=== PATIENT | female | born 1960 | race Caucasian/White ===

== ENCOUNTER → 2019-07-08 09:42 | Outpatient (CLI) | payer MEDICARE, SELFPAY ==
--- NOTE | ~2019-07-08 | XR_ITS ---
XR cervical spine min 6V 07/08/2019 10:24 Indication: Neck pain Procedure: 7 views of the cervical spine including flexion/extension views Comparison: No prior studies for comparison. Findings: There is disc narrowing at C4-5 and C5-6. There is mild multilevel uncinate hypertrophy. Wilma ng apices are normal. No prevertebral soft tissue abnormality. No significant alteration of alignment with flexion/extension. Odontoid process within normal limits. Impression: 1: Mild cervical spondylosis. Reviewed, dictated and finalized at location A. ICAL SCRUB TECH Impression: 1: Mild cervical spondylosis.
== END ==
DX: M47.22 Other spondylosis with radiculopathy, cervical region (principal); M79.12 Myalgia of auxiliary muscles, head and neck; M54.2 Cervicalgia; M99.01 Segmental and somatic dysfunction of cervical region; M99.02 Segmental and somatic dysfunction of thoracic region
CPT/HCPCS: 72052

== ENCOUNTER → 2019-08-10 11:12 | Outpatient (CLI) | payer MEDICARE, SELFPAY ==
--- NOTE | ~2019-08-10 | MM_ITS ---
EXAMINATION: MM screening [facility] BI w mono HISTORY: Screening mammogram TECHNIQUE: Craniocaudal and mediolateral oblique 3-D tomosynthesis images were obtained and synthetic 2-D images were generated. CAD analysis was submitted and interpreted. COMPARISON: 06/04/2010 BREAST PARENCHYMAL COMPOSITION: There are scattered areas of fibroglandular density. FINDINGS: Stable mild fibroglandular asymmetry. There is no evidence of suspicious mass, calcificatio n, or architectural distortion to suggest malignancy in either breast. There has been no suspicious i nterval change. IMPRESSION: 1. No mammographic evidence of malignancy. 2. Recommend routine screening mammography in one year. BI-RADS Category 1: Negative Reviewed, dictated and finalized at location A.
== END ==
PROVIDERS: Visit Provider Nurse Practitioner Obstetrics & Gynecology
DX: Z12.31 Encounter for screening mammogram for malignant neoplasm of breast (principal)
CPT/HCPCS: 77063; 77067

== ENCOUNTER 2019-08-30 10:14 | Inpatient (IN) | payer MEDICARE, SELFPAY ==
[2019-08-30] VITALS (18 sets, daily range): BP systolic 148–175; BP diastolic 60–89; PULSE 97–118; RESP 10–18; TEMP 36.8–39.3; O2SAT 94–100
--- NOTE | ~2019-08-30 | US_ITS ---
EXAMINATION: US venous doppler [facility] EXAM DATE: 08/30/2019 15:35 INDICATION: Left leg edema. TECHNIQUE: Multiple grayscale, color flow and Doppler images of the left lower extremity deep venous system were obtained and reviewed. There is no prior study for comparison. FINDINGS: The left common femoral, femoral and profunda veins demonstrate normal color flow, respirat ory variation, augmentation and compressibility. Compressibility, color flow confirmed within the le ft popliteal, posterior tibial, peroneal, and greater saphenous veins. IMPRESSION: 1. No left lower extremity deep venous thrombosis. Reviewed, dictated and finalized at location A.
--- NOTE | ~2019-08-30 | XR_ITS ---
EXAMINATION: XR chest 1V portable 08/30/2019 11:04 INDICATION: Fever and leg swelling PROCEDURE: AP portable chest COMPARISON: 09/20/2018 FINDINGS: The lungs are clear. The cardiomediastinal silhouette is within normal limits. There are no pleural effusions. There is no pneumothorax suspected. There is heterotopic ossification of the left upper ribs. There is a healed right humeral fracture incompletely visualized. IMPRESSION: 1: NO ACUTE CARDIOPULMONARY DISEASE. Reviewed, dictated and finalized at location A.
--- NOTE | 2019-08-30 10:31 | ED.LOWEXIN ---
HPI - Extremity Injury (Lower) General Chief Complaint: Extremity Injury, Lower Stated Complaint: left leg swelling Time Seen by Provider: 08/30/19 10:17 History of Present Illness HPI Narrative: 59 yo female w/ h/o DM and recurrent LLE cellulitis brought in by private vehicle c/o LLE cellulitis. She first new something was wrong a few days ago when her blood sugar became very difficult to control. Then she noted a painful raised red rash developing around her left knee. The rash has since spread to involve the entire lower leg and part of the thigh. She has also had nausea and multiple episodes Additionally today she developed a fever. This is similar to previous episodes of cellulitis that she has had in the past. This all started after suffer trauma to the left leg requiring reconstructive surgery. Related Data Home Medications Medication Instructions Recorded Confirmed celecoxib 200 mg capsule 200 mg PO BID PRN 04/25/19 04/25/19 cetirizine 10 mg tablet 10 mg PO DAILY 04/25/19 04/25/19 diphenhydramine HCl 25 mg tablet 25 mg PO .QD tablet 04/25/19 04/25/19 Allergies Allergy/AdvReac Type Severity Reaction Status Date / Time chicken derived Allergy Unknown DIZZINESS, Verified 09/20/18 08:16 FACIAL FLUSHING clindamycin Allergy Unknown Rash Verified 08/30/19 10:22 Penicillins Allergy Unknown Anaphylactic Verified 08/30/19 10:22 Shock pepper (genus Capsicum) Allergy Unknown DIZZINESS, Verified 09/20/18 08:16 FACIAL FLUSHING Sulfa (Sulfonamide Allergy Unknown Unknown Verified 08/30/19 10:22 Antibiotics) Review of Systems Review of Systems: All systems reviewed & are unremarkable except as noted in HPI and below Constitutional: Constitutional: Denies fatigue, Reports fever(s) and Denies weakness Cardiovascular: Cardiovascular: Denies chest pain Respiratory: Respiratory: Denies dyspnea Gastrointestinal: Gastrointestinal: Denies abdominal pain, Denies constipation, Denies diarrhea, Reports nausea and Reports vomiting Genitourinary: Genitourinary: Denies dysuria Endocrine: Endocrine: Reports polyuria PMFSH Past Medical History Medical History (Updated 08/30/19 @ 13:12 by Andrew Leahy MD) Cellulitis Elevated BP without diagnosis of hypertension Type 2 diabetes mellitus Surgical History Surgical History History of appendectomy History of cholecystectomy History of hysterectomy S/P debridement Family History Family History Father CAD (coronary artery disease) Hypertension Diabetes mellitus Mother Lung cancer Diabetes mellitus Grandparent Diabetes mellitus Social History Social History Smoking status: Never smoker Alcohol intake: never Gender identity (if verbalized by the patient): Female Exam Const: General: no acute distress, alert and ill appearing acutely and chronically Nutritional Appearance: obese Orientation/consciousness: patient oriented x3 HENMT: Mouth: Yes dry mucous membranes Resp: Effort & Inspection: normal respiratory effort Auscultation: clear to auscultation bilaterally Cardio: Rate: tachycardic Rhythm: regular rhythm GI: Inspection: non-distended GI Palp: Yes Soft to palpation and No Tenderness to palpation present (GI) Skin: Other: extensive surgical scars to LLE. 2 cm scab to left Knee. diffuse erythema, induration, warmth of the LLE below the mid thigh. Neuro: General: patient oriented x3 and moves all extremities Speech: normal speech Extrem: Other: See Skin exam Psych: Appearance: grossly normal Mental Status: mental status grossly normal Affect: normal affect Thought content: Yes Normal thought content present Course Vital Signs Vital signs: Vital Signs Temperature 38.2 C H 08/30/19 10:18 Pulse Rate 115 H 08/30/19 10:18 Respiratory
[2019-08-30] MEDS: SODIUM CHLORIDE 0.9% IV 1,000 ML 999 ML IV CONT ×2 (10:40→12:00)
--- NOTE | 2019-08-30 10:42 | PC.NURSE ---
PT INFORMED OF NEED FOR URINE SPECIMEN, STATES THAT SHE CANNOT GIVE ONE NOW, BUT WILL ATTEMPT IN A BIT, REFUSING STRAIGHT CATH.
[2019-08-30 10:52] LABS: Basophils Percent Auto 0.3 % (0.2-1.2); Hematocrit 44.1 % (37.0-47.0); Hemoglobin 13.9 g/dL (12.0-15.0); Immature Granulocyte Absolute 0.05 K/mm3 (0.00-0.031); Immature Granulocyte Percent A 0.5 % (0-0.5); Lymphocytes Absolute Auto 0.18 K/mm3 (0.9-3.2); Lymphocytes Percent Auto 1.9 % (18.3-44.2); Mean Corpuscular HGB Conc 31.5 g/dl (32-36); Mean Corpuscular Hemoglobin 26.6 pg (26-34); Mean Corpuscular Volume 84.5 fl (80-100); Mean Platelet Volume 11.5 fl (7.4-10.4); Monocytes Absolute Auto 0.4 K/mm3 (0.1-0.6); Monocytes Percent Auto 4.1 % (2.6-8.5); Neutrophils Absolute Auto 8.7 K/mm3 (1.3-6.7); Neutrophils Percent Auto 93.2 % (45.5-73.1); Platelet Count Result 142 k/mm3 (150-375); Red Blood Count 5.22 M/mm3 (4.2-5.4); Red Cell Distribution Width 13.9 % (11.5-14.5); White Blood Count 9.4 K/mm3 (4.5-10.0)
[2019-08-30 11:04] LABS: INR 1.1; Prothrombin Time 13.6 Seconds (11.1-14.7)
[2019-08-30 11:05] LABS: Partial Thromboplastin Time 30.7 SECONDS (22.3-36.8)
--- NOTE | 2019-08-30 11:10 | PC.NURSE ---
Pt unable to give urine sample at this time, refusing straight cath.
[2019-08-30 11:11] LABS: Lactic Acid Reflex 1.5 mmol/L (0.7-2.1)
[2019-08-30 11:29] LABS: Alanine Aminotransferase 21 U/L (4-35); Albumin Level 4.5 g/dL (3.5-5.1); Alkaline Phosphatase 83 U/L (38-126); Aspartate Amino Transferase 22 U/L (14-36); Bilirubin,Total 1.1 mg/dL (0.2-1.3); Blood Urea Nitrogen 11 mg/dL (7-17); Carbon Dioxide 25 mmol/L (22-30); Chloride 100 mmol/L (98-107); Estimated CRCL calculation 66 ml/min; Estimated Glomerular Filt Rate > 60; Glucose 298 mg/dL (65-105); Sodium 132 mmol/L (137-145)
[2019-08-30 11:47] LABS: CRP 19.2 mg/dL (<1.0)
--- NOTE | 2019-08-30 11:50 | PC.NURSE ---
Pt unable to give urine sample, refusing straight cath.
[2019-08-30 12:12] LABS: Appearance Urine Clear (Clear); Bilirubin Urine Negative (Negative); Color Urine Yellow (Yellow); Glucose Urine UA 2+ mg/dL (Negative); Ketones Urine 3+ mg/dL (Negative); Leukocyte Esterase Ur Negative LEU/UL (Negative); Nitrate Urine Negative (Negative); Protein Urine Trace mg/dL (Negative); Specific Grav Ur 1.025 (1.001-1.035); Urobilinogen Urine 0.2 mg/dL (<2.0)
[2019-08-30 12:13] LABS: Add Urine Microscopic? YES; Blood Urine Trace-Intact (Negative)
[2019-08-30] MEDS: LACTATED RINGERS 1,000 ML 125 ML IV CONT (12:56)
--- NOTE | 2019-08-30 12:57 | ADMGEN ---
This patient, Saranya Tirado, was admitted to [facility] Room 300-01. Patient/family oriented to hospital policies and general routines including ID bracelet, bed and alarms, visiting hours, pain management, procedures, bathroom and other care routines, personal items, smoking policy, room service/diet, and visiting hours. Valuables list has been completed. Information on how to activate the Rapid Response Team has been discussed. Patient/Family are encouraged to report perceived risks to care and to ask questions if they do not understand what they are told or what they should do.
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
[2019-08-30] MEDS: ONDANSETRON INJ 4 MG/2 ML VIAL IV PUSH (17:16)
[2019-08-30] MEDS: INSULIN ASPART (*BKC) 100 UNITS/ML SUB-Q (17:16)
[2019-08-30] MEDS: ENOXAPARIN 40 MG/0.4 ML SYRINGE SUB-Q (17:18)
[2019-08-30] MEDS: glipiZIDE 5 MG TABLET PO (17:36)
[2019-08-30 18:49] LABS: Glucose Point of Care 232 (65-105)
[2019-08-30] MEDS: PANTOPRAZOLE 40 MG TABLET PO (20:34)
[2019-08-30] MEDS: CELECOXIB 200 MG CAPSULE PO (20:34)
[2019-08-30 21:14] LABS: Glucose Point of Care 196 (65-105)
[2019-08-31] VITALS (12 sets, daily range): BP systolic 129–150; BP diastolic 55–63; PULSE 84–97; RESP 18; TEMP 36.8–38.4; O2SAT 97–99
[2019-08-31] MEDS: LACTATED RINGERS 1,000 ML 125 ML IV CONT (03:01)
[2019-08-31 05:45] LABS: Basophils Percent Auto 0.4 % (0.2-1.2); Hematocrit 37.5 % (37.0-47.0); Hemoglobin 11.7 g/dL (12.0-15.0); Hemoglobin A1C 6.8 % (<5.7); Immature Granulocyte Absolute 0.03 K/mm3 (0.00-0.031); Immature Granulocyte Percent A 0.5 % (0-0.5); Immature Platelet Fraction Pct 4.7 % (0.9-11.2); Lymphocytes Absolute Auto 0.31 K/mm3 (0.9-3.2); Lymphocytes Percent Auto 5.6 % (18.3-44.2); Mean Corpuscular HGB Conc 31.2 g/dl (32-36); Mean Corpuscular Hemoglobin 26.8 pg (26-34); Mean Corpuscular Volume 85.8 fl (80-100); Mean Platelet Volume 11.3 fl (7.4-10.4); Monocytes Absolute Auto 0.2 K/mm3 (0.1-0.6); Monocytes Percent Auto 3.4 % (2.6-8.5); Neutrophils Percent Auto 90.1 % (45.5-73.1); Platelet Count Result 115 k/mm3 (150-375); Red Blood Count 4.37 M/mm3 (4.2-5.4); Red Cell Distribution Width 13.9 % (11.5-14.5); White Blood Count 5.5 K/mm3 (4.5-10.0)
[2019-08-31 05:49] LABS: Alanine Aminotransferase 17 U/L (4-35); Albumin Level 3.4 g/dL (3.5-5.1); Alkaline Phosphatase 63 U/L (38-126); Aspartate Amino Transferase 20 U/L (14-36); Bilirubin,Total 0.5 mg/dL (0.2-1.3); Blood Urea Nitrogen 10 mg/dL (7-17); Calcium 8.2 mg/dL (8.4-10.2); Carbon Dioxide 26 mmol/L (22-30); Chloride 106 mmol/L (98-107); Estimated CRCL calculation 67 ml/min; Estimated Glomerular Filt Rate > 60; Glucose 179 mg/dL (65-105); Magnesium 1.9 mg/dL (1.6-2.3); Sodium 135 mmol/L (137-145)
[2019-08-31 08:02] LABS: Glucose Point of Care 225 (65-105)
[2019-08-31] MEDS: INSULIN ASPART (*BKC) 100 UNITS/ML SUB-Q ×2 (08:08→12:10)
[2019-08-31] MEDS: CELECOXIB 200 MG CAPSULE PO (08:09)
[2019-08-31] MEDS: LORATADINE 10 MG TABLET PO (08:09)
[2019-08-31] MEDS: PANTOPRAZOLE 40 MG TABLET PO ×2 (08:09→20:49)
[2019-08-31] MEDS: glipiZIDE 5 MG TABLET PO ×2 (08:09→17:08)
[2019-08-31] MEDS: ENOXAPARIN 40 MG/0.4 ML SYRINGE SUB-Q (08:10)
[2019-08-31 10:53] LABS: Hepatitis B Surface Antigen Negative (Negative)
[2019-08-31 11:10] LABS: HIV 1/2 Ab P24 Ag Result Negative (Negative); Hepatitis C Virus Antibody Negative (Negative)
[2019-08-31 11:35] LABS: Glucose Point of Care 206 (65-105)
--- NOTE | 2019-08-31 13:16 | PM.IMPN ---
Progress Note: A&P Assessment and Plan (1) Sepsis: Qualifiers: Sepsis acute organ dysfunction status: without acute organ dysfunction Sepsis type: sepsis due to unspecified organism Qualified Code(s): A41.9 - Sepsis, unspecified organism Code(s): A41.9 - Sepsis, unspecified organism Status: Acute Assessment and Plan: -----on admission patient was tachycardic with a fever. Her heart rate is better. Source likely cellulitis. 1 bottle of her blood cultures is growing gram-positive cocci in clusters. White blood cell count normal but CRP is elevated. Will continue IV antibiotics until identification and sensitivity. (2) Cellulitis: Qualifiers: Site of cellulitis: extremity Site of cellulitis of extremity: lower extremity Laterality: left Qualified Code(s): L03.116 - Cellulitis of left lower limb Code(s): L03.90 - Cellulitis, unspecified Status: Acute Assessment and Plan: -----see above. Continue vancomycin and imipenem at this time. One blood culture positive so far. Patient has had multiple surgeries with skin graft to that left lower extremity in the past. (3) Hyperlipidemia: Qualifiers: Hyperlipidemia type: mixed hyperlipidemia Qualified Code(s): E78.2 - Mixed hyperlipidemia Code(s): E78.5 - Hyperlipidemia, unspecified Status: Acute Assessment and Plan: Chronic . (4) Type 2 diabetes mellitus: Qualifiers: Diabetes mellitus nursing home insulin use: without nursing home use Diabetes mellitus complication status: without complication Qualified Code(s): E11.9 - Type 2 diabetes mellitus without complications Code(s): E11.9 - Type 2 diabetes mellitus without complications Status: Acute Assessment and Plan: -----last glucose to a 6. Likely worsened with infection and vancomycin and dextrose. Continue SSI. A1c 6.8. (5) Bacteremia: Code(s): R78.81 - Bacteremia Status: Acute Assessment and Plan: -----1/2 blood cultures positive for Gram-positive cocci in clusters. Likely due from cellulitis but await sensitivities and identification. See treatment details above. Time Spent With Patient Time with patient: 25 - 35 minutes Subjective Date/time seen: 08/31/19 13:16 Interval history: Pt is a 59-year-old female here for cellulitis. Patient was seen today and states the redness in her leg is unchanged. With that being said, she feels much better. She no longer has chills and feels hot but does not feel as feverish as she has been. She feels overall much better. Her appetite has been lower but she is going to try to eat more today. She says her blood glucose has been more elevated than normal but I talked her about the vancomycin and the dextrose that is in there. She denies chest pain, shortness of breath, or abdominal pain. Review of Systems Review of Systems: All systems reviewed & are unremarkable except as noted in HPI and below Exam Narrative: Exam Narrative: General: Overweight patient resting comfortably in bed in no acute distress HEENT: normocephalic Neck: supple Neuro: Alert and oriented x4 CV:RRR. Telemetry shows sinus tachycardia earlier in the stay but normal sinus rhythm today 89. No murmurs auscultated Resp:CTA Abd: Soft, non distended. No pain to palpation. Positive bowel sounds Extremities: Left leg with erythema mostly on the lower part of the extremity up until inferior aspect of the knee. There is some involvement with the distal thigh as well. This was outlined and will continue watching it. Sensation and pulses intact bilaterally. Objective Data Vital Signs Vital Signs: Vital Signs - 24 hr 08/30/19 13:42 08/30/19 16:00 08/30/19 17:13 Temperature 98.3 F 102.0 F H Pulse Rate 109 H 118 H Respiratory Rate 18 Blood Pressure 152/60 H Pulse Oximetry 97 08/30/19 17:19 08/30/19 17:49 08/30/19 18:54 Tem
[2019-08-31] MEDS: ACETAMINOPHEN 325 MG TABLET 650 MG PO (17:08)
[2019-08-31 17:35] LABS: Glucose Point of Care 195 (65-105)
[2019-08-31 20:58] LABS: Glucose Point of Care 235 (65-105)
[2019-09-01 06:00] VITALS: BP 148/63; PULSE 107; RESP 20; TEMP 36.8; O2SAT 98
[2019-09-01] MEDS: glipiZIDE 5 MG TABLET PO ×2 (09:11→17:27)
[2019-09-01] MEDS: ENOXAPARIN 40 MG/0.4 ML SYRINGE SUB-Q (09:11)
[2019-09-01] MEDS: PANTOPRAZOLE 40 MG TABLET PO ×2 (09:11→21:07)
[2019-09-01] MEDS: INSULIN ASPART (*BKC) 100 UNITS/ML SUB-Q ×2 (09:14→17:28)
[2019-09-01 09:32] LABS: Hematocrit 39.1 % (37.0-47.0); Hemoglobin 12.3 g/dL (12.0-15.0); Mean Corpuscular HGB Conc 31.5 g/dl (32-36); Mean Corpuscular Hemoglobin 27.2 pg (26-34); Mean Corpuscular Volume 86.3 fl (80-100); Platelet Count Result 166 k/mm3 (150-375); Red Blood Count 4.53 M/mm3 (4.2-5.4); White Blood Count 6.5 K/mm3 (4.5-10.0)
[2019-09-01 09:58] LABS: Blood Urea Nitrogen 9 mg/dL (7-17); Calcium 8.3 mg/dL (8.4-10.2); Carbon Dioxide 22 mmol/L (22-30); Chloride 106 mmol/L (98-107); Estimated CRCL calculation 87 ml/min; Estimated Glomerular Filt Rate > 60; Glucose 227 mg/dL (65-105); Potassium 4.2 mmol/L (3.4-5.0); Sodium 133 mmol/L (137-145)
[2019-09-01 10:09] LABS: Vancomycin Trough 6.3 ug/mL (10.0-20.0)
[2019-09-01 10:17] LABS: Glucose Point of Care 215 (65-105)
--- NOTE | 2019-09-01 12:42 | PM.IMPN ---
Progress Note: A&P Assessment and Plan (1) Sepsis: Qualifiers: Sepsis acute organ dysfunction status: without acute organ dysfunction Sepsis type: sepsis due to unspecified organism Qualified Code(s): A41.9 - Sepsis, unspecified organism Code(s): A41.9 - Sepsis, unspecified organism Status: Acute Assessment and Plan: -----on admission patient was tachycardic with a fever. Her heart rate is better. Source likely cellulitis. 1 bottle of her blood cultures is growing coag-negative staph. White blood cell count normal but CRP is elevated. Patient initially on imipenem and vancomycin but she started having a rash and nausea with the imipenem. This has been stopped and the vancomycin will be infused slower. She is now on cefazolin and vancomycin--although the patient is diabetic, Pseudomonas infection seems less likely. Infectious disease consulted (2) Cellulitis: Qualifiers: Site of cellulitis: extremity Site of cellulitis of extremity: lower extremity Laterality: left Qualified Code(s): L03.116 - Cellulitis of left lower limb Code(s): L03.90 - Cellulitis, unspecified Status: Acute Assessment and Plan: -----see above. Continue treatment as stated above. Patient has had multiple surgeries with skin graft to that left lower extremity in the past. She has no metal or hardware in the leg but may have a couple screws. (3) Hyperlipidemia: Qualifiers: Hyperlipidemia type: mixed hyperlipidemia Qualified Code(s): E78.2 - Mixed hyperlipidemia Code(s): E78.5 - Hyperlipidemia, unspecified Status: Acute Assessment and Plan: Chronic . (4) Type 2 diabetes mellitus: Qualifiers: Diabetes mellitus prison insulin use: without reliability technician use Diabetes mellitus complication status: without complication Qualified Code(s): E11.9 - Type 2 diabetes mellitus without complications Code(s): E11.9 - Type 2 diabetes mellitus without complications Status: Acute Assessment and Plan: -----last glucose 215. A1c 6.8. Likely worsened with infection and vancomycin and dextrose. Continue SSI. (5) Bacteremia: Code(s): R78.81 - Bacteremia Status: Acute Assessment and Plan: -----1/2 blood cultures positive for coag-negative staph. Could be contamination but patient has been febrile with cellulitis. Continue cephazolin and vancomycin and I have asked Dr. drew to see the patient. I appreciate his further recommendations (6) Drug eruption: Code(s): L27.0 - Generalized skin eruption due to drugs and medicaments taken internally Status: Acute Assessment and Plan: -----patient started having a diffuse rash which she thinks is because of imipenem. She says she has an anaphylactic shock reaction to penicillins but does not remember this reaction as she was a young child and her mother has provided the information for her. She says that she has taken Keflex in the past without issue. Because of the low cross sensitivity reaction to cephalosporins and her history of cephalosporin use, cefazolin was started in place of imipenem. Subjective Date/time seen: 09/01/19 12:42 Interval history: Pt is a 59-year-old female here for cellulitis. Patient was seen today and states that she broke out in a red rash all over her body with the antibiotics. She thinks it is the imipenem. Every time they hang the antibiotic her skin gets more red and she gets nauseated. She has not noticed anything with the vancomycin. She says she has a penicillin allergy and does not remember it but her mom told her she had anaphylactic shock. The patient states that she takes Keflex and does not have a problem with that. She thinks her left leg looks more red but also states her entire body is red. Her fevers and chills have improved a low-grade fever overnight. We talked about her blood culture daniella
[2019-09-01 13:19] LABS: Glucose Point of Care 200 (65-105)
--- NOTE | 2019-09-01 15:11 | WPDINFPN2 ---
Progress Note: A&P Assessment and Plan (1) Cellulitis: Qualifiers: Site of cellulitis: extremity Site of cellulitis of extremity: lower extremity Laterality: left Qualified Code(s): L03.116 - Cellulitis of left lower limb Code(s): L03.90 - Cellulitis, unspecified Status: Acute Assessment and Plan: lle cellulitis REC Ancef # 1 (antibiotic #3) and f/u. The bacteremia is a contaminant Subjective Date/time seen: 09/01/19 15:11 Objective Data Vital Signs Vital Signs: Vital Signs - 24 hr 08/31/19 16:59 08/31/19 17:08 08/31/19 18:08 Temperature 37.7 C H 37.7 C H 37.7 C H Pulse Rate Respiratory Rate Blood Pressure Pulse Oximetry 08/31/19 22:00 09/01/19 06:00 Temperature 37.5 C 36.8 C Pulse Rate 97 107 H Respiratory Rate 18 20 Blood Pressure 148/63 H 148/63 H Pulse Oximetry 98 98 Intake/Output Intake/Output: Intake & Output 08/29/19 08/30/19 08/31/19 09/01/19 23:59 23:59 23:59 23:59 Intake Total 3500 3531 1190 Output Total 1000 2150 1400 Balance 2500 1381 -210 Meds/Results Medications: Active Medications Generic Name Dose Route Start Last Admin Trade Name Freq PRN Reason Stop Dose Admin Acetaminophen 650 mg 08/31/19 17:02 08/31/19 17:08 Tylenol Tablet PO 650 mg Q6H PRN Administration Mild Pain (1-3) or Fever Celecoxib 200 mg 08/30/19 13:55 08/31/19 08:09 Celebrex PO 200 mg BID PRN Administration Pain, Mild Diphenhydramine HCl 25 mg 08/31/19 09:00 09/01/19 09:11 Benadryl Cap PO 25 mg QAM LEO Administration Enoxaparin Sodium 40 mg 08/30/19 09:00 09/01/19 09:11 Lovenox SUB-Q 40 mg DAILY LEO Administration Glipizide 5 mg 08/30/19 17:00 09/01/19 09:11 Glucotrol PO 5 mg BIDWM LEO Administration Cefazolin Sodium 1 gm in 50 mls @ 100 mls/hr 09/01/19 12:40 Ancef 1 Gm/D5w 50 Ml Pm IVPB Q8HR [facility] Insulin Aspart 2 - 5 units 08/30/19 17:00 09/01/19 12:45 Novolog SUB-Q Not Given TIDWM [facility] Protocol Loratadine 10 mg 08/31/19 09:00 09/01/19 09:17 Claritin PO 09/30/19 09:01 Not Given DAILY [facility] Ondansetron HCl 4 mg 08/30/19 16:50 08/30/19 17:16 Zofran Inj IV PUSH 4 mg Q4H PRN Administration Nausea And Vomiting Pantoprazole Sodium 40 mg 08/30/19 21:00 09/01/19 09:11 Protonix PO 40 mg Q12HR LEO Administration Zinc Acetate/Diphenhydramine 1 applic 09/01/19 09:16 Benadryl 1% Cream TOPICAL QID PRN Itching Radiology Results: ITS Impressions Chest X-Ray 08/30/19 11:09 IMPRESSION: 1: NO ACUTE CARDIOPULMONARY DISEASE. Venous Doppler Study 08/30/19 15:35 IMPRESSION: 1. No left lower extremity deep venous thrombosis. Labs Labs: Laboratory Results - last 24 hr 08/31/19 08/31/19 09/01/19 17:12 20:47 08:53 WBC 6.5 RBC 4.53 Hgb 12.3 Hct 39.1 MCV 86.3 MCH 27.2 MCHC 31.5 L RDW 14.0 Plt Count 166 MPV 12.0 H Sodium Potassium Chloride Carbon Dioxide BUN Creatinine Estim Creat Clear Calc Estimated GFR Glucose POC Capillary Glucose 195 H 235 H Calcium Vancomycin Trough 09/01/19 09/01/19 09/01/19 08:53 08:53 09:04 WBC RBC Hgb Hct MCV MCH MCHC RDW Plt Count MPV Sodium 133 L Potassium 4.2 Chloride 106 Carbon Dioxide 22 BUN 9 Creatinine 0.60 L Estim Creat Clear Calc 87 Estimated GFR > 60 Glucose 227 H POC Capillary Glucose 215 H Calcium 8.3 L Vancomycin Trough 6.3 L 09/01/19 12:44 WBC RBC Hgb Hct MCV MCH MCHC RDW Plt Count MPV Sodium Potassium Chloride Carbon Dioxide BUN Creatinine Estim Creat Clear Calc Estimated GFR Glucose POC Capillary Glucose 200 H Calcium Vancomycin Trough
[2019-09-01 15:23] VITALS: BP 133/67; PULSE 91; RESP 16; TEMP 37.1; O2SAT 99
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
[2019-09-01 18:01] LABS: Glucose Point of Care 245 (65-105)
[2019-09-01] MEDS: DIPHENHYDRAMINE 1%/ZINC 0.1% CREAM 30 GM TUBE 1 APPLIC TOPICAL (19:11)
--- NOTE | 2019-09-01 20:02 | PC.NURSE ---
0815: Patient complains of diffuse itchy red rash. Patient assessed immediately. No SOB/chest or throat tightness. C/o some nausea. Offered patient Zofran but refused. Call placed to Vicenta Harvey PA-C and message left. Garrett seen patient. New orders recieved.
[2019-09-01 21:33] LABS: Glucose Point of Care 219 (65-105)
[2019-09-01 22:00] VITALS: BP 151/62; PULSE 92; RESP 16; TEMP 37.1; O2SAT 98
[2019-09-02 05:24] LABS: Hematocrit 38.5 % (37.0-47.0); Hemoglobin 12.1 g/dL (12.0-15.0); Mean Corpuscular HGB Conc 31.4 g/dl (32-36); Mean Corpuscular Hemoglobin 27.3 pg (26-34); Mean Corpuscular Volume 86.7 fl (80-100); Mean Platelet Volume 11.9 fl (7.4-10.4); Platelet Count Result 190 k/mm3 (150-375); Red Blood Count 4.44 M/mm3 (4.2-5.4); Red Cell Distribution Width 13.9 % (11.5-14.5); White Blood Count 4.1 K/mm3 (4.5-10.0)
[2019-09-02 06:00] VITALS: BP 109/63; PULSE 95; RESP 18; TEMP 36.8; O2SAT 100
[2019-09-02 08:04] LABS: Glucose Point of Care 211 (65-105)
[2019-09-02] MEDS: INSULIN ASPART (*BKC) 100 UNITS/ML SUB-Q ×2 (09:02→12:36)
[2019-09-02] MEDS: ENOXAPARIN 40 MG/0.4 ML SYRINGE SUB-Q (09:04)
[2019-09-02] MEDS: glipiZIDE 5 MG TABLET PO ×2 (09:05→17:54)
[2019-09-02] MEDS: CELECOXIB 200 MG CAPSULE PO (09:06)
[2019-09-02] MEDS: PANTOPRAZOLE 40 MG TABLET PO ×2 (09:06→21:16)
[2019-09-02 09:41] LABS: Blood Urea Nitrogen 14 mg/dL (7-17); CRP 19.1 mg/dL (<1.0); Calcium 8.2 mg/dL (8.4-10.2); Carbon Dioxide 27 mmol/L (22-30); Chloride 105 mmol/L (98-107); Estimated CRCL calculation 67 ml/min; Estimated Glomerular Filt Rate > 60; Glucose 235 mg/dL (65-105); Potassium 3.9 mmol/L (3.4-5.0); Sodium 137 mmol/L (137-145)
[2019-09-02 12:17] LABS: Glucose Point of Care 250 (65-105)
[2019-09-02 14:00] VITALS: BP 114/73; PULSE 101; RESP 18; TEMP 36.3; O2SAT 99
--- NOTE | 2019-09-02 14:10 | PM.IMPN ---
Progress Note: A&P Assessment and Plan (1) Sepsis: Qualifiers: Sepsis acute organ dysfunction status: without acute organ dysfunction Sepsis type: sepsis due to unspecified organism Qualified Code(s): A41.9 - Sepsis, unspecified organism Code(s): A41.9 - Sepsis, unspecified organism Status: Acute Assessment and Plan: -----on admission patient was tachycardic with a fever which has resolved. Source likely cellulitis. 1 bottle of her blood cultures is growing coag-negative staph which is believed to be a contamination. White blood cell count normal but CRP is elevated and unchanged. Patient initially on imipenem and vancomycin but she started having a rash and nausea with the imipenem. She is now on cefazolin. Pseudomonas infection seems less likely. Infectious disease consulted. She will be given 150mg of diflucan as she is having vaginal yeast symptoms. (2) Cellulitis: Qualifiers: Site of cellulitis: extremity Site of cellulitis of extremity: lower extremity Laterality: left Qualified Code(s): L03.116 - Cellulitis of left lower limb Code(s): L03.90 - Cellulitis, unspecified Status: Acute Assessment and Plan: -----see above. Continue treatment as stated above. Patient has had multiple surgeries with skin graft to that left lower extremity in the past. She has no metal or hardware in the leg but may have a couple screws. (3) Hyperlipidemia: Qualifiers: Hyperlipidemia type: mixed hyperlipidemia Qualified Code(s): E78.2 - Mixed hyperlipidemia Code(s): E78.5 - Hyperlipidemia, unspecified Status: Acute Assessment and Plan: Chronic . (4) Type 2 diabetes mellitus: Qualifiers: Diabetes mellitus correction insulin use: without intermodal truck driver use Diabetes mellitus complication status: without complication Qualified Code(s): E11.9 - Type 2 diabetes mellitus without complications Code(s): E11.9 - Type 2 diabetes mellitus without complications Status: Acute Assessment and Plan: -----last glucose 250. A1c 6.8. Likely worsened with infection. Continue SSI. (5) Bacteremia: Code(s): R78.81 - Bacteremia Status: Acute Assessment and Plan: -----1/2 blood cultures positive for coag-negative staph. Likely contamination (6) Drug eruption: Code(s): L27.0 - Generalized skin eruption due to drugs and medicaments taken internally Status: Acute Assessment and Plan: -----Unchanged today. Will do bendryl PRN. patient started having a diffuse rash 08/31 which she thinks was because of imipenem. She says she has an anaphylactic shock reaction to penicillins but does not remember this reaction as she was a young child and her mother has provided the information for her. She says that she has taken Keflex in the past without issue. She is tolerating the cefazolin at this time. Subjective Date/time seen: 09/02/19 14:10 Interval history: Pt is a 59-year-old female here for cellulitis. Patient was seen today and states she feels a lot better. She no longer has the fevers or the sweating. She still has the rash that started yesterday with antibiotics. She says the Benadryl helps her with the itching. She also thinks that she is getting a yeast infection which is common when she is on antibiotics. She denies chest pain, shortness of breath, fevers, abdominal pain, or diarrhea. Exam Narrative: Exam Narrative: General: Overweight patient resting comfortably in bed in no acute distress HEENT: normocephalic Neck: supple Neuro: Alert and oriented x4 CV:RRR. No murmurs auscultated Resp:CTA Abd: Soft, non distended. No pain to palpation. Positive bowel sounds skin: Blanchable macular erythematous rash noted on her trunk and extremities. Extremities: Left leg with erythema--not improved. No open wounds. Sensation and pulses intact. Objective Data Vital
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
[2019-09-02] MEDS: FLUCONAZOLE 150 MG TABLET PO (17:55)
[2019-09-02] MEDS: DIPHENHYDRAMINE 1%/ZINC 0.1% CREAM 30 GM TUBE 1 APPLIC TOPICAL (21:21)
[2019-09-02 21:30] LABS: Glucose Point of Care 172 (65-105)
[2019-09-02 22:00] VITALS: BP 144/63; PULSE 88; RESP 16; TEMP 37.1; O2SAT 97
[2019-09-03 01:21] LABS: Glucose Point of Care 237 (65-105)
[2019-09-03 06:19] VITALS: BP 130/70; PULSE 92; RESP 18; TEMP 37.1; O2SAT 98
[2019-09-03] MEDS: ENOXAPARIN 40 MG/0.4 ML SYRINGE SUB-Q (07:41)
[2019-09-03] MEDS: PANTOPRAZOLE 40 MG TABLET PO ×2 (07:42→21:12)
[2019-09-03] MEDS: glipiZIDE 5 MG TABLET PO ×2 (07:43→17:19)
[2019-09-03] MEDS: CELECOXIB 200 MG CAPSULE PO (07:44)
[2019-09-03 08:00] VITALS: PULSE 92; RESP 18; O2SAT 98
[2019-09-03 08:43] LABS: Glucose Point of Care 187 (65-105)
[2019-09-03 09:16] LABS: Hematocrit 40.1 % (37.0-47.0); Hemoglobin 12.4 g/dL (12.0-15.0); Mean Corpuscular HGB Conc 30.9 g/dl (32-36); Mean Corpuscular Hemoglobin 26.9 pg (26-34); Mean Platelet Volume 10.2 fl (7.4-10.4); Platelet Count Result 203 k/mm3 (150-375); Red Blood Count 4.61 M/mm3 (4.2-5.4); Red Cell Distribution Width 13.8 % (11.5-14.5); White Blood Count 4.1 K/mm3 (4.5-10.0)
[2019-09-03 09:49] LABS: Vancomycin Trough < 5.0 ug/mL (10.0-20.0)
--- NOTE | 2019-09-03 10:31 | PHAR ---
The patient's home med of CETIRIZINE 10 MG TABLET has been verified.
[2019-09-03 13:05] LABS: Glucose Point of Care 189 (65-105)
[2019-09-03 14:00] VITALS: BP 163/68; PULSE 89; RESP 18; TEMP 36.1; O2SAT 100
--- NOTE | 2019-09-03 15:06 | PM.IMPN ---
Progress Note: A&P Assessment and Plan (1) Sepsis: Qualifiers: Sepsis acute organ dysfunction status: without acute organ dysfunction Sepsis type: sepsis due to unspecified organism Qualified Code(s): A41.9 - Sepsis, unspecified organism Code(s): A41.9 - Sepsis, unspecified organism Status: Acute Assessment and Plan: -----on admission patient was tachycardic with a fever which has resolved. Source likely cellulitis. 1 bottle of her blood cultures is growing coag-negative staph which is believed to be a contamination. White blood cell count improved but CRP is elevated and unchanged. Patient initially on imipenem and vancomycin but she started having a rash and nausea with the imipenem. She is now on cefazolin and the cellulitis is better. Pseudomonas infection seems less likely. Infectious disease consulted. She was given 150mg of diflucan 09/01 as she was having vaginal yeast symptoms. (2) Cellulitis: Qualifiers: Site of cellulitis: extremity Site of cellulitis of extremity: lower extremity Laterality: left Qualified Code(s): L03.116 - Cellulitis of left lower limb Code(s): L03.90 - Cellulitis, unspecified Status: Acute Assessment and Plan: -----see above. Continue treatment as stated above. Patient has had multiple surgeries with skin graft to that left lower extremity in the past. She has no metal or hardware in the leg but may have a couple screws. (3) Hyperlipidemia: Qualifiers: Hyperlipidemia type: mixed hyperlipidemia Qualified Code(s): E78.2 - Mixed hyperlipidemia Code(s): E78.5 - Hyperlipidemia, unspecified Status: Acute Assessment and Plan: Chronic . (4) Type 2 diabetes mellitus: Qualifiers: Diabetes mellitus retirement insulin use: without retirement use Diabetes mellitus complication status: without complication Qualified Code(s): E11.9 - Type 2 diabetes mellitus without complications Code(s): E11.9 - Type 2 diabetes mellitus without complications Status: Acute Assessment and Plan: -----last glucose 189. A1c 6.8. Likely worsened with infection. Continue SSI. (5) Bacteremia: Code(s): R78.81 - Bacteremia Status: Acute Assessment and Plan: -----1/2 blood cultures positive for coag-negative staph. Likely contamination (6) Drug eruption: Code(s): L27.0 - Generalized skin eruption due to drugs and medicaments taken internally Status: Acute Assessment and Plan: -----Unchanged today. Will do bendryl PRN. patient started having a diffuse rash 08/31 which she thinks was because of imipenem. She says she has an anaphylactic shock reaction to penicillins but does not remember this reaction as she was a young child and her mother has provided the information for her. She says that she has taken Keflex in the past without issue. She is tolerating the cefazolin at this time. Subjective Date/time seen: 09/03/19 15:06 Interval history: Pt is a 59-year-old female here for cellulitis. Patient was seen today and states that her rash from the antibiotic has not improved but her cellulitis has. She says her rash itches at times but overall is not bothering her. She has no other complaints today. Pt denies nausea, vomiting, fevers, chills, constipation, diarrhea, chest pain, sob, or abdominal pain. Exam Narrative: Exam Narrative: General: Overweight patient resting comfortably in bed in no acute distress HEENT: normocephalic Neck: supple Neuro: Alert and oriented x4 CV:RRR. No murmurs auscultated Resp: Decreased breath sounds at the bases. All other areas clear. Abd: Soft, non distended. No pain to palpation. Positive bowel sounds skin: Blanchable maculopapular erythematous rash noted on her trunk and extremities. Extremities: Left leg with erythema--much improved. Most of the erythema is now on the posterior asp
[2019-09-03] MEDS: INSULIN ASPART (*BKC) 100 UNITS/ML SUB-Q (17:20)
[2019-09-03 17:53] LABS: Glucose Point of Care 203 (65-105)
[2019-09-03] MEDS: DIPHENHYDRAMINE 1%/ZINC 0.1% CREAM 30 GM TUBE 1 APPLIC TOPICAL (21:26)
[2019-09-03 22:00] VITALS: BP 148/71; PULSE 77; RESP 18; TEMP 36.4; O2SAT 99
[2019-09-03 22:59] LABS: Glucose Point of Care 248 (65-105)
[2019-09-04 06:00] VITALS: BP 130/47; PULSE 76; RESP 16; TEMP 36.2; O2SAT 98
[2019-09-04 08:00] VITALS: PULSE 83; RESP 16; O2SAT 99
[2019-09-04] MEDS: glipiZIDE 5 MG TABLET PO (08:30)
[2019-09-04] MEDS: ENOXAPARIN 40 MG/0.4 ML SYRINGE SUB-Q (08:34)
[2019-09-04] MEDS: PANTOPRAZOLE 40 MG TABLET PO (08:35)
[2019-09-04] MEDS: CELECOXIB 200 MG CAPSULE PO (08:35)
[2019-09-04 08:39] LABS: Glucose Point of Care 202 (65-105)
[2019-09-04] MEDS: INSULIN ASPART (*BKC) 100 UNITS/ML SUB-Q ×2 (08:39→12:37)
[2019-09-04 13:08] LABS: Glucose Point of Care 206 (65-105)
[2019-09-04 13:13] VITALS: BP 132/70; PULSE 83; RESP 16; TEMP 36.7; O2SAT 99
--- NOTE | 2019-09-04 13:30 | PM.DS ---
DS: Diagnosis Admitting Diagnosis Admitting Diagnosis: Sepsis, unspecified organism Discharge Diagnosis (1) Sepsis: Qualifiers: Sepsis acute organ dysfunction status: without acute organ dysfunction Sepsis type: sepsis due to unspecified organism Qualified Code(s): A41.9 - Sepsis, unspecified organism Code(s): A41.9 - Sepsis, unspecified organism Status: Acute (2) Cellulitis: Qualifiers: Site of cellulitis: extremity Site of cellulitis of extremity: lower extremity Laterality: left Qualified Code(s): L03.116 - Cellulitis of left lower limb Code(s): L03.90 - Cellulitis, unspecified Status: Acute (3) Hyperlipidemia: Qualifiers: Hyperlipidemia type: mixed hyperlipidemia Qualified Code(s): E78.2 - Mixed hyperlipidemia Code(s): E78.5 - Hyperlipidemia, unspecified Status: Acute (4) Type 2 diabetes mellitus: Qualifiers: Diabetes mellitus buttermaker insulin use: without penitentiary use Diabetes mellitus complication status: without complication Qualified Code(s): E11.9 - Type 2 diabetes mellitus without complications Code(s): E11.9 - Type 2 diabetes mellitus without complications Status: Acute (5) Bacteremia: Code(s): R78.81 - Bacteremia Status: Acute Assessment and Plan: -----1/2 blood cultures positive for coag-negative staph. Likely contamination (6) Drug eruption: Code(s): L27.0 - Generalized skin eruption due to drugs and medicaments taken internally Status: Acute DS: Summary Hospital Course Reason for hospitalization: Cellulitis Hospital Course: Patient is 59-year-old female who presented emergency room with left leg cellulitis. Patient has a history of cellulitis as she has had surgeries on her left leg with lots of scar tissue. The patient also had associated weakness and chills with this. She was admitted to the hospitalist service and started on IV antibiotics. She was 1st on vancomycin and imipenem which caused her to have a drug eruption rash on her trunk and extremities. This was stopped and switched to Ancef. Her cellulitis improved with this treatment. She had 1 of her blood cultures become positive but it was coag-negative staph and was thought to be due to contamination. The patient had improvement with her systemic symptoms with antibiotic therapy. Infectious Disease was consulted during this time and agreed with current treatment. Overall, the patient improved. She has many food and drug allergies and it was recommended that she see an metal burrer. Patient was educated on the worrisome signs symptoms come back to emergency room for was discharged in stable condition Status at Discharge Functional status at discharge: independent ambulation Overall status at discharge: patient is back to baseline Time Spent with Patient Time attestation: Total time spent providing and/or coordinating discharge services:34 min Time spent: Greater than 30 minutes Exam Narrative: Exam Narrative: General: Overweight patient resting comfortably in bed in no acute distress HEENT: normocephalic Neck: supple Neuro: Alert and oriented x4 CV:RRR. No murmurs auscultated Resp: Decreased breath sounds at the bases. All other areas clear. Abd: Soft, non distended. No pain to palpation. Positive bowel sounds skin: Blanchable maculopapular erythematous rash noted on her trunk and extremities. Extremities: Left leg with erythema--much improved. No open wounds. Sensation and pulses intact. DS: Data Data Completed and Pending Labs on day of discharge: Labs from last 24 hours 09/04/19 09/04/19 09/03/19 12:34 08:24 21:28 POC Capillary Glucose 206 H 202 H 248 H 09/03/19 17:18 POC Capillary Glucose 203 H Preliminary micro results at discharge 08/30/19 10:44 Blood Culture - Preliminary Blood Coag negative Staphylococcus 08/30/19 10:44 Blood Culture - Preli
== END 2019-09-04 15:00 | disposition home or self-care (01) | DRG 603 ==
LOC: ANHED 12:06 → ANH3MEDSUR 12:34
PROVIDERS: Nurse Practitioner; Physician Assistant; Admitting Provider Family Medicine; Emergency Provider Emergency Medicine; PCP Internal Medicine; Visit Provider Internal Medicine
DX: L03.116 Cellulitis of left lower limb (principal); B95.61 Methicillin susceptible Staphylococcus aureus infection as the cause of diseases classified elsewhere; R03.0 Elevated blood-pressure reading, without diagnosis of hypertension; E11.9 Type 2 diabetes mellitus without complications; E66.9 Obesity, unspecified; Z68.34 Body mass index [BMI] 34.0-34.9, adult; L27.1 Localized skin eruption due to drugs and medicaments taken internally; T36.0X5A Adverse effect of penicillins, initial encounter; Z90.49 Acquired absence of other specified parts of digestive tract; Z90.710 Acquired absence of both cervix and uterus; Z98.84 Bariatric surgery status
CPT/HCPCS: 36415; 71045; 80048; 80053; 80202; 81001; 83036; 83605; 83735; 84443; 85025; 85027; 85055; 85610; 85730; 86140; 86703; 86803; 87040; 87077; 87186; 87340; 93971; 96365; 96367; 99285; A9270; G0432; J0131; J0690; J0743; J1650; J1815; J2405; J3370; J7030; J7060; J7120

== ENCOUNTER 2019-12-05 15:07 | Inpatient (IN) | payer MEDICARE, SELFPAY ==
[2019-12-05 15:41] VITALS: BP 133/65; PULSE 118; RESP 20; TEMP 37.1; O2SAT 100
[2019-12-05 15:57] LABS: Basophils Percent Auto 0.4 % (0.2-1.2); Hemoglobin 13.9 g/dL (12.0-15.0); Immature Granulocyte Absolute 0.02 K/mm3 (0.00-0.031); Immature Granulocyte Percent A 0.3 % (0-0.5); Immature Platelet Fraction Pct 5.2 % (0.9-11.2); Lymphocytes Absolute Auto 0.21 K/mm3 (0.9-3.2); Lymphocytes Percent Auto 2.9 % (18.3-44.2); Mean Corpuscular HGB Conc 32.3 g/dl (32-36); Mean Corpuscular Hemoglobin 27.3 pg (26-34); Mean Corpuscular Volume 84.5 fl (80-100); Mean Platelet Volume 11.7 fl (7.4-10.4); Monocytes Absolute Auto 0.4 K/mm3 (0.1-0.6); Monocytes Percent Auto 5.2 % (2.6-8.5); Neutrophils Absolute Auto 6.7 K/mm3 (1.3-6.7); Neutrophils Percent Auto 91.2 % (45.5-73.1); Platelet Count Result 129 k/mm3 (150-375); Red Blood Count 5.09 M/mm3 (4.2-5.4); Red Cell Distribution Width 14.1 % (11.5-14.5); White Blood Count 7.4 K/mm3 (4.5-10.0)
[2019-12-05 16:08] LABS: Blood Urea Nitrogen 20 mg/dL (7-17); Calcium 8.8 mg/dL (8.4-10.2); Carbon Dioxide 26 mmol/L (22-30); Chloride 100 mmol/L (98-107); Estimated CRCL calculation 66 ml/min; Estimated Glomerular Filt Rate > 60; Glucose 201 mg/dL (65-105); Potassium 4.2 mmol/L (3.4-5.0); Sodium 134 mmol/L (137-145)
[2019-12-05 18:23] VITALS: BP 163/83; PULSE 115; RESP 20; O2SAT 98
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
[2019-12-05] MEDS: SODIUM CHLORIDE 0.9% IV 1,000 ML 999 ML IV CONT (19:33)
[2019-12-05] MEDS: METOCLOPRAMIDE HCL INJ 10 MG/2 ML VIAL IV PUSH (19:35)
[2019-12-05 20:19] LABS: Lactic Acid 2.3 mmol/L (0.7-2.1)
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
[2019-12-05 21:53] VITALS: BP 171/72; PULSE 117; RESP 19; O2SAT 99
[2019-12-05 22:04] VITALS: PULSE 115; RESP 19; TEMP 38.8; O2SAT 95
--- NOTE | 2019-12-05 22:17 | PC.NURSE ---
report given to floor RN at this time, all questions/concerns addressed.
--- NOTE | 2019-12-05 22:44 | PC.NURSE ---
This patient, Saranya Tirado, was admitted to 2 Medical Room 255-. Patient/family oriented to hospital policies and general routines including ID bracelet, bed and alarms, visiting hours, pain management, procedures, bathroom and other care routines, personal items, smoking policy, room service/diet, and visiting hours. Valuables list has been completed. Information on how to activate the Rapid Response Team has been discussed. Patient/Family are encouraged to report perceived risks to care and to ask questions if they do not understand what they are told or what they should do.
[2019-12-05 23:04] VITALS: BP 152/88; PULSE 110; RESP 12; TEMP 37.2; O2SAT 98
[2019-12-05 23:06] VITALS: BMI 34.9
[2019-12-05 23:27] LABS: Glucose Point of Care 293 (65-105)
[2019-12-06] VITALS (13 sets, daily range): BP systolic 125–154; BP diastolic 54–65; PULSE 109–128; RESP 16–20; TEMP 38.3–39.6; O2SAT 95–98
[2019-12-06 04:09] LABS: Basophils Percent Auto 0.4 % (0.2-1.2); Hematocrit 40.1 % (37.0-47.0); Hemoglobin 12.9 g/dL (12.0-15.0); Immature Granulocyte Absolute 0.02 K/mm3 (0.00-0.031); Immature Granulocyte Percent A 0.3 % (0-0.5); Immature Platelet Fraction Pct 4.1 % (0.9-11.2); Lymphocytes Absolute Auto 0.18 K/mm3 (0.9-3.2); Lymphocytes Percent Auto 2.4 % (18.3-44.2); Mean Corpuscular HGB Conc 32.2 g/dl (32-36); Mean Corpuscular Volume 84.1 fl (80-100); Mean Platelet Volume 11.2 fl (7.4-10.4); Monocytes Absolute Auto 0.2 K/mm3 (0.1-0.6); Monocytes Percent Auto 2.8 % (2.6-8.5); Neutrophils Absolute Auto 6.9 K/mm3 (1.3-6.7); Neutrophils Percent Auto 94.1 % (45.5-73.1); Platelet Count Result 138 k/mm3 (150-375); Red Blood Count 4.77 M/mm3 (4.2-5.4); Red Cell Distribution Width 14.6 % (11.5-14.5); White Blood Count 7.4 K/mm3 (4.5-10.0)
[2019-12-06 04:18] LABS: Lactic Acid Reflex 1.2 mmol/L (0.7-2.1)
[2019-12-06 05:23] LABS: Blood Urea Nitrogen 14 mg/dL (7-17); Calcium 8.5 mg/dL (8.4-10.2); Carbon Dioxide 23 mmol/L (22-30); Chloride 103 mmol/L (98-107); Estimated CRCL calculation 67 ml/min; Estimated Glomerular Filt Rate > 60; Glucose 247 mg/dL (65-105); Potassium 4.2 mmol/L (3.4-5.0); Sodium 133 mmol/L (137-145)
[2019-12-06] MEDS: ACETAMINOPHEN 325 MG TABLET 650 MG PO ×3 (06:12→21:32)
[2019-12-06] MEDS: ONDANSETRON INJ 4 MG/2 ML VIAL IV PUSH (06:15)
[2019-12-06] MEDS: glipiZIDE 5 MG TABLET PO ×2 (06:52→18:31)
[2019-12-06 07:23] LABS: Glucose Point of Care 223 (65-105)
[2019-12-06] MEDS: INSULIN ASPART (*BKC) 100 UNITS/ML SUB-Q (07:50)
[2019-12-06] MEDS: MULTIVITAMINS THERAPEUTIC TAB (*BKC) 1 TABLET PO (07:51)
[2019-12-06] MEDS: LORATADINE 10 MG TABLET PO (07:52)
[2019-12-06] MEDS: metFORMIN HCL 500 MG TABLET 1000 MG PO ×2 (07:52→18:31)
[2019-12-06] MEDS: ENOXAPARIN 40 MG/0.4 ML SYRINGE SUB-Q (07:52)
--- NOTE | 2019-12-06 10:19 | PM.IMPN ---
Progress Note: A&P Assessment and Plan (1) Sepsis: Qualifiers: Sepsis acute organ dysfunction status: without acute organ dysfunction Sepsis type: sepsis due to unspecified organism Qualified Code(s): A41.9 - Sepsis, unspecified organism Code(s): A41.9 - Sepsis, unspecified organism Status: Acute Assessment and Plan: Evident by tachycardia and fever, secondary to cellulitis. Lactic acid is improved, 1.2. Blood pressures have been stable. Continue IV antibiotics Begin gentle IV fluids Monitor vital signs closely and urine output. Blood cultures are pending and will await results (2) Cellulitis: Qualifiers: Site of cellulitis: extremity Site of cellulitis of extremity: lower extremity Laterality: left Qualified Code(s): L03.116 - Cellulitis of left lower limb Code(s): L03.90 - Cellulitis, unspecified Status: Acute Assessment and Plan: She has a history of LLE cellulitis with recent hospitalization in August 2019. She has chronic LLE edema secondary to surgical debridement/skin graft and has extensive scar tissue on the left leg. On exam, the leg is erythematous and warm to palpation. CRP is 3.0. Continue IV Vancomycin. It is noted that patient had a drug eruption during her last hospital stay when she was on Vancomycin with Imipenem. As of now, there is no evidence for adverse reaction with Vancomycin as a single agent but will monitor closely. Begin gentle IV fluids I have outlined the area to monitor for progression beyond borders. (3) Type 2 diabetes mellitus: Qualifiers: Diabetes mellitus retirement insulin use: without retirement use Diabetes mellitus complication status: without complication Qualified Code(s): E11.9 - Type 2 diabetes mellitus without complications Code(s): E11.9 - Type 2 diabetes mellitus without complications Status: Chronic Assessment and Plan: A1c in August 2019 was 6.8. Blood sugars have been within the 200-250 range. Continue accuchecks, SSI Coverage, hypoglycemic protocol. Continue metformin and glipizide. Continue to monitor blood sugar closely Subjective Date/time seen: 12/06/19 10:19 Interval history: Date of service: 12/06/2019 She is feeling okay today. She thinks her leg may be getting a little better and less painful today but states it is still very warm and red. She describes the pain as a hammer hitting her leg. Her leg is chronically swollen secondary to a surgical procedure and she does not feel that it is more swollen today. She endorsed fever and chills this morning but does not feel feverish now. She felt a little nauseous this morning which improved with zofran. She has not vomited. She is tolerating oral intake, drinking water, and her appetite has been good. She denies dizziness, lightheadedness, headache, confusion, shortness of breath, cough, chest pain, abdominal pain, or diarrhea. She requested her celebrex several times. Review of Systems Review of Systems: Narrative: A 12 point review of systems was reviewed with pertinent positives and negatives as per HPI. Exam Narrative: Exam Narrative: Ms. Tirado is examined alone today. She is a well nourished 59 year old female who is lying supine in bed. She appears comfortable in bed and is in NARD. HR 96, BP 154/65, RR 16, T 103.1, 97% on room air Neuro: awake, alert and oriented x4, speech clear, no focal neuro deficits noted HEENMT: normocephalic, atraumatic, EOMI, sclerae anicteric, moist oral mucosa, tongue midline Neck: supple, no lymphadenopathy Respiratory: clear to auscultation bilaterally, nonlabored breathing Cardio: regular rate, regular rhythm with S1-S2 Abdomen: slightly protuberant, surgical scar about umbilicus, normoactive bowel sounds, soft, nontender to palpation, no rigidity or guarding Extremities: LLE with muscle atrophy, skin changes, and chronic edema secondary to surgical procedure. Left valdez
[2019-12-06] MEDS: SODIUM CHLORIDE 0.9% IV 1,000 ML 75 ML IV CONT (12:21)
[2019-12-06 12:39] LABS: Glucose Point of Care 144 (65-105)
--- NOTE | 2019-12-06 13:53 | PCCCNOTE ---
On 12/06/19, the student, Juanita Elder, provided care and completed [facility] documentation on this patient. I have reviewed the student's documentation and agree with the findings.
[2019-12-06 17:00] LABS: Glucose Point of Care 174 (65-105)
[2019-12-06] MEDS: diphenhydrAMINE HCl CAP 25 MG CAPSULE PO (20:42)
[2019-12-06] MEDS: IMIPENEM/CILASTATIN SODIUM 250 MG in DEXTROSE 5% 100 ML 300 ML IVPB (23:00)
[2019-12-07 00:03] LABS: Glucose Point of Care 163 (65-105)
[2019-12-07] MEDS: SODIUM CHLORIDE 0.9% IV 1,000 ML 75 ML IV CONT ×2 (02:41→17:27)
[2019-12-07] MEDS: ONDANSETRON INJ 4 MG/2 ML VIAL IV PUSH ×3 (02:45→21:45)
[2019-12-07 05:14] LABS: Hematocrit 37.4 % (37.0-47.0); Hemoglobin 11.8 g/dL (12.0-15.0); Mean Corpuscular HGB Conc 31.6 g/dl (32-36); Mean Corpuscular Hemoglobin 27.2 pg (26-34); Mean Corpuscular Volume 86.2 fl (80-100); Platelet Count Result 125 k/mm3 (150-375); Red Blood Count 4.34 M/mm3 (4.2-5.4); Red Cell Distribution Width 14.6 % (11.5-14.5); White Blood Count 5.7 K/mm3 (4.5-10.0)
[2019-12-07 05:40] LABS: Blood Urea Nitrogen 13 mg/dL (7-17); Calcium 8.2 mg/dL (8.4-10.2); Carbon Dioxide 22 mmol/L (22-30); Chloride 106 mmol/L (98-107); Estimated CRCL calculation 60 ml/min; Estimated Glomerular Filt Rate > 60; Glucose 130 mg/dL (65-105); Sodium 134 mmol/L (137-145)
[2019-12-07 06:00] VITALS: BP 124/48; PULSE 103; RESP 18; TEMP 39.1; O2SAT 100
[2019-12-07] MEDS: IMIPENEM/CILASTATIN SODIUM 250 MG in DEXTROSE 5% 100 ML 300 ML IVPB (06:15)
[2019-12-07 06:19] LABS: CRP 42.3 mg/dL (<1.0)
[2019-12-07] MEDS: glipiZIDE 5 MG TABLET PO ×2 (06:24→17:28)
[2019-12-07 06:38] VITALS: TEMP 39.1
[2019-12-07] MEDS: ACETAMINOPHEN 325 MG TABLET 650 MG PO (06:38)
[2019-12-07 08:00] VITALS: PULSE 103; RESP 18; O2SAT 100
[2019-12-07] MEDS: metFORMIN HCL 500 MG TABLET 1000 MG PO ×2 (08:55→17:28)
[2019-12-07] MEDS: ENOXAPARIN 40 MG/0.4 ML SYRINGE SUB-Q (08:55)
[2019-12-07] MEDS: LORATADINE 10 MG TABLET PO (08:56)
[2019-12-07] MEDS: MULTIVITAMINS THERAPEUTIC TAB (*BKC) 1 TABLET PO (08:57)
[2019-12-07 09:11] LABS: Glucose Point of Care 185 (65-105)
--- NOTE | 2019-12-07 09:43 | PM.IMPN ---
Progress Note: A&P Assessment and Plan (1) Sepsis: Qualifiers: Sepsis acute organ dysfunction status: without acute organ dysfunction Sepsis type: sepsis due to unspecified organism Qualified Code(s): A41.9 - Sepsis, unspecified organism Code(s): A41.9 - Sepsis, unspecified organism Status: Acute Assessment and Plan: Evident by tachycardia and fever, secondary to cellulitis. Lactic acid is improved,. Blood pressures have been stable. Her fever has been persistent. Continue IV antibiotics Continue gentle IV fluids Monitor vital signs closely and urine output. preliminary blood cultures with NGTD. Await final cultures (2) Cellulitis: Qualifiers: Site of cellulitis: extremity Site of cellulitis of extremity: lower extremity Laterality: left Qualified Code(s): L03.116 - Cellulitis of left lower limb Code(s): L03.90 - Cellulitis, unspecified Status: Acute Assessment and Plan: She has a history of LLE cellulitis with recent hospitalization in August 2019. She has chronic LLE edema secondary to surgical debridement/skin graft and has extensive scar tissue on the left leg with poor skin integrity. CRP is 42.3. Continue IV Vancomycin. She had no adverse drug reaction when vancomycin was used as a single agent. Will add IV Ancef. Patient tolerated this well during her last hospitalization. Given her multiple drug allergies, will monitor closely Continue gentle IV fluids and supportive care with Tylenol as needed for fever Area has been outlined and erythema is confined to orders. (3) Type 2 diabetes mellitus: Qualifiers: Diabetes mellitus bed bug exterminator insulin use: without bed bug exterminator use Diabetes mellitus complication status: without complication Qualified Code(s): E11.9 - Type 2 diabetes mellitus without complications Code(s): E11.9 - Type 2 diabetes mellitus without complications Status: Chronic Assessment and Plan: A1c in August 2019 was 6.8. Blood sugars have been within the 140-180 range today. Continue accuchecks, SSI Coverage, hypoglycemic protocol. Continue metformin and glipizide. Continue to monitor blood sugar closely (4) Drug eruption: Code(s): L27.0 - Generalized skin eruption due to drugs and medicaments taken internally Status: Acute Assessment and Plan: During previous hospitalization, she was noted to have a drug eruption while on vancomycin and imipenem. She believes that this was due to imipenem as she has been told by her mother that she had anaphylactic shock reaction to penicillins as a very young child. She was started on imipenem last night and received 2 doses despite her documented allergy. This morning, she was noted to have a fine maculopapular rash of the upper extremities and back with associated pruritus Imipenem has been discontinued Continue Benadryl as needed given her multiple medication allergies, patient was advised to see an global security architect and she will benefit from follow-up as an outpatient. Subjective Date/time seen: 12/07/19 09:43 Interval history: Date of service: 12/07/2019 She is feeling better today. She felt feverish this morning, but feels is improved now. She thinks that her leg is less red and far less tender. She is able to walk on it with no difficulty. She is able to ambulate and denies any dizziness or lightheadedness, but notes that she feels weak after getting up, going to the bathroom, and lying back down. She feels itchy and notes that she has a fine rash on her upper arms. She also complains of GERD symptoms and requests an antacid. Her appetite has been fair. She denies nausea, vomiting, diarrhea, or abdominal pain. She had 2 soft formed bowel movements yesterday. She is drinking plenty of water. She has no additional concerns at this time. Review of Systems Review of Systems: Narrative: A 12 point review of systems was revie
[2019-12-07] MEDS: diphenhydrAMINE HCl CAP 25 MG CAPSULE PO (10:20)
[2019-12-07 11:44] LABS: Glucose Point of Care 219 (65-105)
[2019-12-07] MEDS: FAMOTIDINE 20 MG TABLET PO (11:48)
[2019-12-07] MEDS: INSULIN ASPART (*BKC) 100 UNITS/ML SUB-Q (11:53)
[2019-12-07 14:00] VITALS: BP 149/68; PULSE 106; RESP 12; TEMP 36.4; O2SAT 100
[2019-12-07 16:44] LABS: Glucose Point of Care 195 (65-105)
[2019-12-07 22:00] VITALS: BP 142/58; PULSE 104; RESP 22; TEMP 37.7; O2SAT 96
[2019-12-07 23:28] LABS: Glucose Point of Care 152 (65-105)
[2019-12-08 02:03] LABS: Vancomycin Trough 8.6 ug/mL (10.0-20.0)
[2019-12-08 05:33] LABS: Basophils Percent Auto 0.4 % (0.2-1.2); Eosinophils Absolute Auto 0.2 K/mm3 (0-0.3); Eosinophils Percent Auto 2.8 % (0-4.4); Hematocrit 35.8 % (37.0-47.0); Hemoglobin 11.3 g/dL (12.0-15.0); Immature Granulocyte Absolute 0.04 K/mm3 (0.00-0.031); Immature Granulocyte Percent A 0.7 % (0-0.5); Lymphocytes Absolute Auto 0.55 K/mm3 (0.9-3.2); Lymphocytes Percent Auto 10.2 % (18.3-44.2); Mean Corpuscular HGB Conc 31.6 g/dl (32-36); Mean Corpuscular Volume 85.4 fl (80-100); Monocytes Absolute Auto 0.3 K/mm3 (0.1-0.6); Neutrophils Absolute Auto 4.3 K/mm3 (1.3-6.7); Neutrophils Percent Auto 79.9 % (45.5-73.1); Platelet Count Result 145 k/mm3 (150-375); Red Blood Count 4.19 M/mm3 (4.2-5.4); Red Cell Distribution Width 14.6 % (11.5-14.5); White Blood Count 5.4 K/mm3 (4.5-10.0)
[2019-12-08 06:00] VITALS: BP 139/60; PULSE 99; RESP 20; TEMP 37.9; O2SAT 98
[2019-12-08 06:10] LABS: Anion Gap 8.8 mmol/L (7-16); Blood Urea Nitrogen 11 mg/dL (7-17); Calcium 7.9 mg/dL (8.4-10.2); Carbon Dioxide 22 mmol/L (22-30); Chloride 107 mmol/L (98-107); Estimated CRCL calculation 67 ml/min; Estimated Glomerular Filt Rate > 60; Glucose 147 mg/dL (65-105); Potassium 3.8 mmol/L (3.4-5.0); Sodium 134 mmol/L (137-145)
[2019-12-08] MEDS: SODIUM CHLORIDE 0.9% IV 1,000 ML 75 ML IV CONT (06:20)
[2019-12-08 06:39] LABS: CRP 31.2 mg/dL (<1.0)
[2019-12-08] MEDS: ONDANSETRON INJ 4 MG/2 ML VIAL IV PUSH (07:44)
[2019-12-08 07:54] LABS: Glucose Point of Care 149 (65-105)
[2019-12-08 07:58] VITALS: PULSE 99; RESP 20; O2SAT 98
[2019-12-08] MEDS: ENOXAPARIN 40 MG/0.4 ML SYRINGE SUB-Q (08:34)
[2019-12-08] MEDS: glipiZIDE 5 MG TABLET PO ×2 (08:35→16:46)
[2019-12-08] MEDS: metFORMIN HCL 500 MG TABLET 1000 MG PO ×2 (08:35→16:46)
[2019-12-08] MEDS: PANTOPRAZOLE 40 MG TABLET PO (08:37)
[2019-12-08] MEDS: diphenhydrAMINE HCl CAP 25 MG CAPSULE PO ×2 (08:39→17:54)
--- NOTE | 2019-12-08 10:28 | PM.IMPN ---
Progress Note: A&P Assessment and Plan (1) Sepsis: Qualifiers: Sepsis acute organ dysfunction status: without acute organ dysfunction Sepsis type: sepsis due to unspecified organism Qualified Code(s): A41.9 - Sepsis, unspecified organism Code(s): A41.9 - Sepsis, unspecified organism Status: Acute Assessment and Plan: Evident by tachycardia and fever, secondary to cellulitis. Lactic acid is wnl. Blood pressures have been stable. Her fever seems to be improving and she had only a low grade fever this morning. Continue IV antibiotics Will discontinue IV fluids as patient is able to tolerate oral intake Monitor vital signs closely preliminary blood cultures with NGTD. Await final cultures (2) Cellulitis: Qualifiers: Site of cellulitis: extremity Site of cellulitis of extremity: lower extremity Laterality: left Qualified Code(s): L03.116 - Cellulitis of left lower limb Code(s): L03.90 - Cellulitis, unspecified Status: Acute Assessment and Plan: She has a history of LLE cellulitis with recent hospitalization in August 2019. She has chronic LLE edema secondary to surgical debridement/skin graft and has extensive scar tissue on the left leg with poor skin integrity. CRP is mildly improved. Seems to be significantly improved today with smaller area and less erythema and warmth. Continue IV Vancomycin. She had no adverse drug reaction when vancomycin was used as a single agent. Continue IV Ancef. Patient tolerated this well during her last hospitalization. Given her multiple drug allergies, will monitor closely Continue supportive care with Tylenol as needed for fever Area has been outlined and erythema is confined to orders and appears to be shrinking. (3) Type 2 diabetes mellitus: Qualifiers: Diabetes mellitus longterm insulin use: without termite helper use Diabetes mellitus complication status: without complication Qualified Code(s): E11.9 - Type 2 diabetes mellitus without complications Code(s): E11.9 - Type 2 diabetes mellitus without complications Status: Chronic Assessment and Plan: A1c in August 2019 was 6.8. Blood sugars have been fairly well controlled in the 150s Continue accuchecks, SSI coverage, and hypoglycemic protocol. Continue metformin and glipizide. Continue to monitor blood sugar closely (4) Drug eruption: Code(s): L27.0 - Generalized skin eruption due to drugs and medicaments taken internally Status: Acute Assessment and Plan: During previous hospitalization, she was noted to have a drug eruption while on vancomycin and imipenem. She believes that this was due to imipenem as she has been told by her mother that she had anaphylactic shock reaction to penicillins as a very young child. She was started on imipenem overnight on 12/06/19 and received 2 doses despite her documented allergy. On 12/06, she was noted to have a fine maculopapular rash of the upper extremities and back with associated pruritus. Rash and pruritis improved today. Imipenem has been discontinued (12/07/19) Continue Benadryl as needed Given her multiple medication allergies, patient was advised to see an punch box tender and she will benefit from follow-up as an outpatient. Subjective Date/time seen: 12/08/19 10:28 Interval history: Date of service: 12/08/2019 She says she is feeling better today. Her left leg tenderness has improved significantly. She thinks it is less red today too. She feels a little warm but denies fevers or chills. She has not had any nausea or vomiting. Her rash has improved and she denies pruritis. Her GERD symptoms have significantly improved. She complains of occasional loose stools but denies watery diarrhea, foul odor, hematochezia, or dark and tarry stools. She denies dysuria or hematuria. She denies abdominal pain, shortness of breath, cough, chest pain, palpitations, dizziness, light
[2019-12-08 11:33] LABS: Glucose Point of Care 171 (65-105)
[2019-12-08 14:00] VITALS: BP 136/43; PULSE 94; RESP 19; TEMP 37.1; O2SAT 98
[2019-12-08 16:39] LABS: Glucose Point of Care 162 (65-105)
--- NOTE | 2019-12-08 21:44 | PHAR ---
PHARMACY VERIFIED *USE HOME MED* CETIRIZINE 10 MG
[2019-12-08 22:00] VITALS: BP 149/57; PULSE 88; RESP 18; TEMP 37.3; O2SAT 99
[2019-12-08 22:08] LABS: Glucose Point of Care 140 (65-105)
[2019-12-09 05:38] VITALS: BP 142/57; PULSE 86; RESP 18; TEMP 36.6; O2SAT 98
[2019-12-09 05:54] LABS: Hematocrit 35.7 % (37.0-47.0); Hemoglobin 11.2 g/dL (12.0-15.0); Mean Corpuscular HGB Conc 31.4 g/dl (32-36); Mean Corpuscular Hemoglobin 26.5 pg (26-34); Mean Corpuscular Volume 84.6 fl (80-100); Mean Platelet Volume 11.1 fl (7.4-10.4); Platelet Count Result 148 k/mm3 (150-375); Red Blood Count 4.22 M/mm3 (4.2-5.4); Red Cell Distribution Width 14.2 % (11.5-14.5); White Blood Count 3.2 K/mm3 (4.5-10.0)
[2019-12-09 06:11] LABS: Anion Gap 7.4 mmol/L (7-16); Blood Urea Nitrogen 11 mg/dL (7-17); Calcium 8.1 mg/dL (8.4-10.2); Carbon Dioxide 26 mmol/L (22-30); Chloride 106 mmol/L (98-107); Estimated CRCL calculation 67 ml/min; Estimated Glomerular Filt Rate > 60; Glucose 165 mg/dL (65-105); Potassium 3.4 mmol/L (3.4-5.0); Sodium 136 mmol/L (137-145)
[2019-12-09] MEDS: glipiZIDE 5 MG TABLET PO (06:24)
[2019-12-09 06:33] LABS: CRP 12.6 mg/dL (<1.0)
[2019-12-09 07:46] LABS: Glucose Point of Care 158 (65-105)
[2019-12-09] MEDS: metFORMIN HCL 500 MG TABLET 1000 MG PO (08:06)
[2019-12-09] MEDS: diphenhydrAMINE HCl CAP 25 MG CAPSULE PO (08:11)
--- NOTE | 2019-12-09 08:53 | PM.DS ---
DS: Admitting Diagnosis Admitting Diagnosis Admitting Diagnosis: Cellulitis of left lower limb DS: Discharge Diagnosis Discharge Diagnosis (1) Sepsis: Qualifiers: Sepsis acute organ dysfunction status: without acute organ dysfunction Sepsis type: sepsis due to unspecified organism Qualified Code(s): A41.9 - Sepsis, unspecified organism Code(s): A41.9 - Sepsis, unspecified organism Status: Acute Assessment and Plan: Present on admission, evident by tachycardia and fever. Source of infection is cellulitis. Lactic acid initially elevated but improved to normal limits. Blood pressures remained stable. Fever persisted for 2 days but improved and she remained afebrile >24 hours. She was rehydrated with IV fluids and treated with IV antibiotics. Preliminary blood cultures with NGTD and final cultures will be monitored. (2) Cellulitis: Qualifiers: Laterality: left Site of cellulitis: extremity Site of cellulitis of extremity: lower extremity Qualified Code(s): L03.116 - Cellulitis of left lower limb Code(s): L03.90 - Cellulitis, unspecified Status: Acute Assessment and Plan: She has a history of LLE cellulitis with recent hospitalization in August 2019. She has chronic LLE edema secondary to surgical debridement/skin graft and has extensive scar tissue on the left leg with poor skin integrity. CRP trended and improved. She had no leukocytosis. She was started on IV vancomycin and IV Ancef was added. She had significant improvement of erythema, warmth, and tenderness. The area of erythema improved. She has been instructed to monitor for signs of progression beyond marked borders, lymphangitic streaking, or other signs of worsening. She will continue Keflex q6h for 6 days to complete a total of 10 days antibiotic therapy and follow up with PCP. 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 Blood sugars were stable.Continue metformin and glipizide. Monitor blood sugar ACHS and record. (4) Drug eruption: Code(s): L27.0 - Generalized skin eruption due to drugs and medicaments taken internally Status: Acute Assessment and Plan: During previous hospitalization, she was noted to have a drug eruption while on vancomycin and imipenem. She believes that this was due to imipenem as she has been told by her mother that she had anaphylactic shock reaction to penicillins as a very young child. She was started on imipenem overnight on 12/06/19 for unclear reason and upon evaluation on 12/06, she was noted to have a fine maculopapular rash of the upper extremities and back with associated pruritus. Imipenem was discontinued on 12/06. She had improvement of rash and pruritis with benadryl and pepcid. Given her multiple medication allergies, patient was advised to see an web merchandiser and she will benefit from follow-up as an outpatient. DS: Summary Hospital Course Hospital Course: Date of admission: 12/05/2019 Date of discharge: 12/09/2019 Saranya Tirado is a 59 year old Diabetic female with history of multiple bouts of cellulitis who presented to the hospital with a complaint of left lower extremity redness, pain, and swelling that she woke up with on the morning of 12/05/2019. She was seen by her PCP and was directed to the ED for IV antibiotics and fluids. At presentation, T 98.8, HR 118, WBC 7.4, H&H 13.9 and 43.0, plt 129, glucose 201, CRP 3.0, and lactic acid 2.3. SHe was admitted to the hospitalist service and given IV fluids and IV antibiotics. She had significant symptomatic improvement and was eager to return home. Her fevers imp
== END 2019-12-09 10:07 | disposition home or self-care (01) | DRG 872 ==
LOC: ANHED 20:23 → ANH2MED 20:35
PROVIDERS: Emergency Medicine; Physician Assistant; Admitting Provider Family Medicine; Emergency Provider Emergency Medicine; PCP Internal Medicine; Visit Provider Internal Medicine
DX: A41.9 Sepsis, unspecified organism (principal); L03.116 Cellulitis of left lower limb; E11.9 Type 2 diabetes mellitus without complications; J45.909 Unspecified asthma, uncomplicated; T36.0X5A Adverse effect of penicillins, initial encounter; L27.0 Generalized skin eruption due to drugs and medicaments taken internally
CPT/HCPCS: 36415; 80048; 80202; 83605; 85025; 85027; 85055; 86140; 87040; 96361; 96365; 96366; 96367; 96372; 96375; 96376; 99285; A9270; G0378; J0131; J0690; J0743; J1650; J1815; J2405; J2765; J3370; J7030

== ENCOUNTER 2020-07-23 09:09 | Outpatient (CLI) | payer MEDICARE, SELFPAY ==
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
[2020-08-09 10:30] VITALS: BMI 34.4
== END 2020-07-23 09:10 | disposition home or self-care (01) ==
LOC: ANHCSM 09:09
PROVIDERS: PCP Internal Medicine; Visit Provider Clinical Nurse Specialist
DX: G47.10 Hypersomnia, unspecified (principal); E11.9 Type 2 diabetes mellitus without complications; Z79.899 Other long term (current) drug therapy; E66.9 Obesity, unspecified; Z68.34 Body mass index [BMI] 34.0-34.9, adult
CPT/HCPCS: 95806

== ENCOUNTER → 2020-08-17 05:05 | Outpatient (CLI) | payer MEDICARE, SELFPAY ==
[2020-08-17 19:22] LABS: SARS-CoV-2 RNA PCR Negative
== END ==
PROVIDERS: PCP Internal Medicine; Visit Provider Internal Medicine Critical Care Medicine
DX: Z01.812 Encounter for preprocedural laboratory examination (principal); Z20.822 Contact with and (suspected) exposure to COVID-19
CPT/HCPCS: C9803; U0003; U0005

== ENCOUNTER 2020-08-20 09:02 | Outpatient (CLI) | payer MEDICARE, SELFPAY ==
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
[2020-09-05 07:48] VITALS: BMI 34.6
== END 2020-08-20 09:03 | disposition home or self-care (01) ==
LOC: ANHCSM 09:03
PROVIDERS: PCP Internal Medicine; Visit Provider Clinical Nurse Specialist
DX: G47.10 Hypersomnia, unspecified (principal); R06.83 Snoring; G25.81 Restless legs syndrome
CPT/HCPCS: 95810

== ENCOUNTER 2021-12-10 11:48 | Outpatient (RCR) | payer MEDICARE, SELFPAY ==
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
--- NOTE | 2021-12-10 14:58 | PCPTNOTE ---
pt signed consent for info release and her eval was faxed to [facility] for insurance authorization for home intermittent compression pump; issued pt a brochure and card for the local rep;
--- NOTE | 2021-12-25 10:15 | PCPTNOTE ---
Spoke with Fariba at Dr Arana's office about compression pump for lymphedema due to [employer] contacting their office. Answered questions about compression pump and [employer] [facility] [employer].
--- NOTE | 2022-01-13 13:38 | PCPTNOTE ---
PHYSICAL THERAPY DISCHARGE Attending Provider: Sepideh Guzmán NP Patient:Saranya Tirado Date of :1960 Ms. Tirado has not returned for any further treatments since the initial PT evaluation on 12/10/2021, therefore she will be discharged at this time. Thank you for referring this patient to [facility]. Please review, sign, date and return this discharge summary MAINE. I have been updated about the patient's current status and I agree with discharge from the above service at this time. Referring Physician Date
== END 2022-01-13 14:04 | disposition home or self-care (01) ==
LOC: ANHPT 11:48
PROVIDERS: PCP Internal Medicine; Visit Provider Nurse Practitioner
DX: T86.821 Skin graft (allograft) (autograft) failure (principal); I89.0 Lymphedema, not elsewhere classified; V09.3XXA Pedestrian injured in unspecified traffic accident, initial encounter
CPT/HCPCS: 97162

== ENCOUNTER → 2022-12-30 11:04 | Outpatient (CLI) | payer MEDICARE, SELFPAY ==
--- NOTE | ~2022-12-30 | MM_ITS ---
EXAMINATION: MM screening ting BI w mono HISTORY: Screening TECHNIQUE: Craniocaudal and mediolateral oblique 3-D tomosynthesis images were obtained and synthetic 2-D images were generated. CAD analysis was submitted and interpreted. COMPARISON: Comparison to multiple prior studies sequentially, with oldest reviewed study dated 06/04. BREAST PARENCHYMAL COMPOSITION: Breast composed of scattered areas of fibroglandular density FINDINGS: There is a new spiculated mass in the upper outer quadrant of the right breast, middle thir d. The left breast is stable without evidence for malignancy. IMPRESSION: 1. New spiculated right breast mass, upper outer quadrant. 2. Additional mammographic views and possible breast ultrasound are recommended. BI-RADS Category 0: Incomplete: Needs additional imaging evaluation. Reviewed, dictated and finalized at location A. IMPRESSION: 1. New spiculated right breast mass, upper outer quadrant. 2. Additional mammographic views and possible breast ultrasound are recommended . BI-RADS Category 0: Incomplete: Needs additional imaging evaluation.
== END ==
PROVIDERS: PCP Nurse Practitioner; Visit Provider Nurse Practitioner
DX: Z12.31 Encounter for screening mammogram for malignant neoplasm of breast (principal); N63.11 Unspecified lump in the right breast, upper outer quadrant
CPT/HCPCS: 77063; 77067

== ENCOUNTER → 2023-01-22 08:34 | Outpatient (CLI) | payer MEDICARE, SELFPAY ==
--- NOTE | ~2023-01-22 | MMUS_ITS ---
EXAMINATION: MM diagnostic ting RT w mono, US breast RT limited HISTORY: New spiculated right breast mass, upper outer quadrant reported on 12/31/2022 screening mammo gram TECHNIQUE: Additional 3-D tomosynthesis images of the right breast were performed and synthetic 2-D i mages were generated. CAD analysis was submitted and interpreted. High resolution upper outer quadran t right breast ultrasound was performed. COMPARISON: 12/30/2022, 08/10/2019 bilateral screening mammogram examinations FINDINGS: MAMMOGRAPHIC FINDINGS: There is a new area of asymmetry/architectural distortion in the upper outer quadrant of the right br east at mid to posterior depth since 08/10/2019. ULTRASOUND: 10:00 5 cm from nipple: Parallel circumscribed 2.9 x 5.6 x 7.3 mm hypoechoic lesion with some posteri or shadowing, no internal vascularity 10:00 3 cm from nipple: Parallel circumscribed solid lesion measuring 4.7 x 6.3 x 6.7 mm, with jewel bearing turner ior shadowing, no internal vascularity 11:00 5 cm from nipple: Irregular antiparallel hypoechoic approximately 7 mm wide 8.5 mm deep mass wi th posterior shadowing and internal vascularity, very suspicious for malignancy IMPRESSION: 1. Irregular antiparallel hypoechoic posteriorly shadowing 7 x 8.5 mm mass with internal vascularity at 11:00 5 cm from nipple, very suspicious for malignancy 2. 2 shadowing masses at 10:00 3. Ultrasound-guided biopsy of the 3 right breast masses at 10:00 and 11:00 is recommended BI-RADS category 4, suspicious findings. Dr. Albarran telephoned the report and ultrasound-guided biopsy recommendations on 01/22/[address] Hendricks. Reviewed, dictated and finalized at location A. IMPRESSION: 1. Irregular antiparallel hypoechoic posteriorly shadowing 7 x 8.5 mm mass with internal vascularity at 11:00 5 cm from nipple, very suspicious for malignancy 2. 2 shadowing masses at 10:00 3. Ultrasound-guided biopsy of the 3 right breast masses at 10:00 and 11:00 is recommended BI-RADS category 4, suspicious findings. Dr. Albarran telephoned the report and ultrasound-guided biopsy recommendations on 01/22/20[address] Hendricks.
== END ==
PROVIDERS: PCP Nurse Practitioner; Visit Provider Nurse Practitioner
DX: N63.10 Unspecified lump in the right breast, unspecified quadrant (principal); R92.8 Other abnormal and inconclusive findings on diagnostic imaging of breast
CPT/HCPCS: 76642; 77061; 77065; G0279

== ENCOUNTER 2023-02-12 10:12 | Outpatient (CLI) | payer MEDICARE, SELFPAY ==
--- NOTE | ~2023-02-12 | US_ITS ---
US breast bx add lesion RT DATE: 02/12/2023 12:37 Please refer to 02/12/2023 biopsy report. Reviewed, dictated and finalized at Location A. Reviewed, dictated and finalized at location A.
--- NOTE | ~2023-02-12 | MM_ITS ---
EXAMINATION: MM post biopsy invasive RT HISTORY: 3 breast masses TECHNIQUE: ML and CC images of right breast were performed after 3 lesion breast biopsy procedure.. FINDINGS: The 3 biopsy markers successfully deployed, 2 in the upper outer quadrant and one in the up per mid breast. IMPRESSION: Status post biopsy of two 10:00 and one 11:00 breast masses Reviewed, dictated and finalized at location A.
--- NOTE | ~2023-02-12 | US_ITS ---
US breast bx add lesion RT DATE: 02/12/2023 12:36 Please refer to 02/04/2023 biopsy report. Reviewed, dictated and finalized at Location A. Reviewed, dictated and finalized at location A.
--- NOTE | ~2023-02-12 | US_ITS ---
EXAMINATION: US GUIDED NEEDLE BIOPSY DATE: 02/12/2023 12:52 CDT INDICATION: 3 solid lesions, one at 11:00, two at 10:00. TECHNIQUE AND FINDINGS: The risks and potential benefits of the procedure were discussed with the patient, and written inform ed consent was obtained. Timeout procedure was performed. After sterile preparation of the right anupam st, 1% lidocaine was utilized for local anesthesia. A 12G spring-loaded biopsy gun needle was advanced to the edge of the region of interest at all 3 loc ations from a lateral approach utilizing sonographic guidance. A total of three tissue core samples were obtained through each of the 3 lesions. An Inrad tissue marker clip was then placed at each bio psy site. Hemostasis was achieved. A sterile bandage was applied. The patient tolerated procedure well and there was no evidence of immediate complication. The patien t was given verbal instructions prior to departing from the department. A two view mammogram was perf ormed to document tissue marker clip placement. The tissue samples were submitted to surgical patholo gy for histologic analysis. IMPRESSION: Ultrasound guided biopsy of 3 breast masses with biopsy marker placement. Please refer to pathology r eport for histologic analysis. Reviewed, dictated and finalized at Location A. Reviewed, dictated and finalized at location A. IMPRESSION: Ultrasound guided biopsy of 3 breast masses with biopsy marker placement. Nicholas mendenhall refer to pathology report for histologic analysis.
== END 2023-02-12 10:13 | disposition home or self-care (01) ==
PROVIDERS: PCP Nurse Practitioner; Visit Provider Surgery
DX: C50.411 Malignant neoplasm of upper-outer quadrant of right female breast (principal); Z17.0 Estrogen receptor positive status [ER+]; D24.1 Benign neoplasm of right breast
CPT/HCPCS: 19083; 19084; 88305; 88342; 88360; 88365; A4648

== ENCOUNTER 2023-03-06 14:20 | Outpatient (CLI) | payer MEDICARE, SELFPAY ==
--- NOTE | 2023-03-10 14:21 | WPDHOLTEREM ---
Holter/Event Monitor Holter/Event Monitor Date of procedure: 03/06/23 Holter/Event Procedure: 24 Hr Holter Monitor Indications: Tachycardia Conclusion: 1. 24 hour holter monitor on 03/06/23. 2. Underlying rhythm is sinus rhythm. HR range 56-143 bpm; average HR 83 bpm. HR at 143 bpm was at 22:59. 3. There are 3 premature supraventricular complexes. No supraventricular tachycardia. 4. No premature ventricular complex. No ventricular tachycardia. 5. No sinoatrial or atrioventricular blocks. No significant pauses greater than 2 seconds. 6. No symptoms available for correlation.
== END 2023-03-06 14:21 | disposition home or self-care (01) ==
LOC: ANHCARD 14:21
PROVIDERS: PCP Internal Medicine; Visit Provider Nurse Practitioner
DX: R00.0 Tachycardia, unspecified (principal)
CPT/HCPCS: 93225; 93226

== ENCOUNTER 2023-03-16 08:31 | Outpatient (CLI) | payer MEDICARE, SELFPAY ==
[2023-03-16 09:13] LABS: Anion Gap 3 mmol/L (8-16); Blood Urea Nitrogen 20 mg/dL (7-17); Calcium 9.2 mg/dL (8.4-10.2); Carbon Dioxide 30 mmol/L (22-30); Chloride 102 mmol/L (98-107); Estimated Glomerular Filt Rate > 60; Glucose 153 mg/dL (65-110); Potassium 4.8 mmol/L (3.4-5.0); Sodium 135 mmol/L (137-145)
== END 2023-03-16 08:32 | disposition home or self-care (01) ==
LOC: ANHSURGERY 08:38
PROVIDERS: Anesthesiology; PCP Nurse Practitioner; Visit Provider Surgery
DX: C50.911 Malignant neoplasm of unspecified site of right female breast (principal); E11.9 Type 2 diabetes mellitus without complications; Z01.818 Encounter for other preprocedural examination
CPT/HCPCS: 36415; 80048; 86850; 86900; 86901

== ENCOUNTER 2023-03-18 01:01 | Day surgery (SDC) | payer MEDICARE, SELFPAY ==
[2023-03-12 11:43] VITALS: BMI 32.3
--- NOTE | 2023-03-12 11:51 | PC.NURSE ---
Addendum entered by Griselda Holman RN 03/12/23 12:01: PT TO BRING INHALER WITH HER DAY OF SURGERY. Original Note: Report to the Outpatient Waiting Room, entrance under the green pavilion located off [facility], at time 6:00 on date 03/18/23. Planned Procedure Time: 7:30. Time changes happen often and if your time is changed the preop area will call you the afternoon before. - You and your visitor will be asked to self-screen and do not enter if you have any COVID symptoms. - A mask is optional within the hospital at this time. Patients may have clear liquids (water, carbonated beverages, clear teas, apple juice) until 3 hours prior to surgery (4:30) with a maximum of 20 ounces. - No food from midnight until time of surgery Take the following medications with a SIP of water the morning of surgery: NONE DO NOT STOP ANY OF YOUR OTHER PRESCRIPTION MEDICATIONS PRIOR TO SURGERY ?EXCEPT THE FOLLOWING Medications to discontinue per physician: VITAMINS/SUPPLEMENTS Date to take last dose: 03/14/[address] LINCOLN REGARDING CELEBREX. Please no make-up, nail irish, hairspray, perfume, deodorant, or body powder the day of surgery. No jewelry (including any body piercings) or valuables the day of surgery, leave them at home. Please take a shower or bath the night before, or the morning of, surgery with an antibacterial soap. Wear comfortable, loose fitting clothing. - Jewelry must be removed prior to entering the operating room. Rings and piercings that are not removed may be cut off. - The hospital will not accept responsibility for valuables. - Please leave all valuables, including medications, at home the day of surgery. If you are going home after surgery, a licensed dairy truck driver must drive you home. - NO public transportation without another adult if you receive anesthesia. - We recommend that an adult stay with you for 24 hours following discharge. - We also recommend that you do not drive, make important decision, drink alcoholic beverages, or take any drugs that were not prescribed by your health care provider for at least 24 hours after your discharge time. Follow any additional instructions given to you from your surgeon. If you or anyone in your household have experienced Covid symptoms in the past week, please notify your surgeon or the nurse liaison at the phone number below for possible testing. Telephone instructions given to CEDRICK CORNELIUS and asked if any additional questions and then verbalized understanding. Patient advised to call surgeon office or pre surgery nurse liaison [phone] if any additional questions.
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
[2023-03-18] VITALS (19 sets, daily range): BP systolic 122–181; BP diastolic 48–84; PULSE 68–97; RESP 12–20; TEMP 35.9–37.1; O2SAT 93–100; BMI 32.3
[2023-03-18 07:00] LABS: Glucose Point of Care 150 mg/dl (65-105)
--- NOTE | 2023-03-18 07:04 | WPDHPUPDATE1 ---
History and Physical Update Update Date/Time: 03/18/23 07:04 History and Physical has been reviewed, including an updated exam of the patient. There are NO changes in the patient's condition. Risks, benefits, and alternatives have been discussed and questions answered. Patient agrees to proceed with procedure.
[2023-03-18] MEDS: ACETAMINOPHEN 500 MG TABLET 1000 MG PO (07:07)
[2023-03-18] MEDS: LACTATED RINGERS 1,000 ML 30 ML IV CONT ×2 (07:08→11:20)
[2023-03-18] MEDS: ceFAZolin 2 GM/D5W 50 ML 2 GM/50 ML BAG IVPB (07:29)
[2023-03-18] MEDS: BUPIVACAINE/EPINEPHRINE 0.5% 50 ML VIAL INFILTRATE (08:15)
[2023-03-18] MEDS: METHYLENE BLUE 0.5% INJ 10 ML AMPULE IRRIGATION (08:18)
--- NOTE | 2023-03-18 08:51 | SUR.OPER ---
left breast excision time 0801. right breast excision time 0851.
--- NOTE | 2023-03-18 11:09 | W.PM.PROC2 ---
Procedure Note - Detailed Date of Procedure 03/18/23 Pre-op Diagnosis Right breast invasive ductal carcinoma Post-op Diagnosis Same Procedure Performed Right total mastectomy Injection of magtrace and melthylene blue dye for sentinel lymph node identification Right axillary sentinel lymph node biopsy Prophylactic left total mastectomy Surgeon Arabella Mulligan MD Vice President [employer] Kianna Mccurdy PA-C Anesthesia General Indications 62-year-old female previously evaluated for new diagnosis of right breast invasive ductal carcinoma, ER positive, MA positive, HER2 negative, Ki-67 7% who returns today to finalize plans for surgery.? Patient was evaluated by Oncology an Oncotype DX is still pending.? Genetic test unfortunately was canceled by the company due to Ms. Labile test and insufficient sample.? However, after weighing her options of surgery, patient decided to proceed with bilateral mastectomy at this time without reconstruction.? Patient states she decided against reconstruction due to possible need for additional procedures in the future? related to implants, which she would like to minimize any future surgery as much as possible.? Patient states that at this time, she would like to proceed with again bilateral mastectomies without reconstruction and will perform right sentinel lymph node at the same time of surgery.? I will reach out to oncology to let them know about the surgical plans and to follow-up oncotype DX results.? Risks of the procedure were discussed with the patient which included but not limited to risk of bleeding, infection, positive margin, recurrence, possible need for additional procedures in the future, scar, pain, wound healing problems, as well as the risk of anesthesia.? All questions were answered patient agreed to proceed.? Description of Procedure Patient was identified in the preoperative holding area brought to the operating room suite.? She was placed supine operating table sequential compression devices were applied. General anesthesia was induced without difficulty.?The right nipple areola area was prepped with alcohol and I injected 2 cc of Mag trace in the subareolar plane. I also injected 2 cc of diluted methylene blue 50:50 in the subdermal plane of the periareola area. Bilateral chest and right axillary areas were prepped draped in sterile fashion.? Decision was made to start with the left prophylactic side.? An elliptical incision encompassing the nipple areolar complex was made and dissection was carried down through the subcutaneous tissue and continued through the thin areolar tissue plane between the subcutaneous tissue with the breast tissue superiorly to the inferior border of the clavicle.? We then continued our dissection medially to the lateral aspect of the sternum, inferiorly to the inframammary fold and laterally to latissimus.? Once this was performed the breast tissue along with the pectoralis fascia was dissected off the pectoralis muscle posteriorly.? The mastectomy specimen was then marked short stitch superior long stitch lateral stitch lateral for orientation.? The specimen was then sent to pathology as a fresh specimen.? Hemostasis was assured.? Attention was then turned to the right axilla.? The sentimag probe was used to find the area of highest radio activity in the right axilla, and an incision was made overlying this area that was incorporated into the mastectomy incision.? Dissection was carried down through the subcutaneous tissue and the clavipectoral fascia was incised.? I was able to identify a node that was hot and blue.? This was gently grasped and excised using the LigaSure device.? The gamma probe was used to obtain account which was approximately 48.? This was sent to pathology as a permanent specimen.? The gamma probe was again used to scan the axilla trying to identify another node that was at least 10% of the original sentinel lymph node count.?While inspecting the axilla, a prominent/larger node was i
[2023-03-18] MEDS: fentaNYL CITRATE INJ (*CRX) 100 MCG/2 ML VIAL 25 MCG IV PUSH ×2 (11:47→11:54)
[2023-03-18] MEDS: ONDANSETRON INJ 4 MG/2 ML VIAL IV PUSH ×2 (11:57→14:28)
[2023-03-18] MEDS: diphenhydrAMINE HCl INJ 50 MG/ML VIAL 12.5 MG IV PUSH (12:18)
[2023-03-18] MEDS: SCOPOLAMINE 1.5 MG PATCH TRANSDERM (12:19)
[2023-03-18 12:33] LABS: Glucose Point of Care 216 mg/dl (65-105)
--- NOTE | 2023-03-18 13:37 | SUR.PHASEI ---
1335 - PT C/O PAIN WITH DRESSING FEELING TOO TIGHT. DR LINCOLN CALLED AND WAITING FOR CALL BACK 1345 - RODRÍGUEZ rich CALLED BACK AND INSTRUCTED FOR CHELLE BAND AGE TO BE LOOSENED 1/2 AROUND.
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
[2023-03-18] MEDS: metFORMIN HCL 500 MG TABLET 1000 MG PO (17:14)
[2023-03-18] MEDS: glipiZIDE 5 MG TABLET PO (17:14)
[2023-03-18 17:16] LABS: Glucose Point of Care 217 mg/dl (65-105)
[2023-03-18 20:21] LABS: Glucose Point of Care 150 mg/dl (65-105)
[2023-03-18] MEDS: HYDROcodone/acetaminophen (*CRX) 5-325 MG TABLET 1 TAB PO (23:45)
[2023-03-19] VITALS: PULSE 97; RESP 131; TEMP 37.2
[2023-03-19 04:00] VITALS: BP 135/46; PULSE 80; RESP 16; TEMP 36.5; O2SAT 97
[2023-03-19 07:44] LABS: Glucose Point of Care 135 mg/dl (65-105)
--- NOTE | 2023-03-19 08:49 | PM.DS ---
DS: Admitting Diagnosis Discharge Date 03/19/23 Admitting Diagnosis Breast cancer DS: Discharge Diagnosis Discharge Diagnosis Plan Discharge Home DS: Summary Hospital Course Reason for hospitalization: 62 y/o female with right breast cancer admitted through same day surgery 03/18/23 for bilateral total mastectomy and right sentinel lymph node biopsy. Pt tolerated procedure well, admitted for observation. Improved overnight, pain well managed. Denies fever/chills, bleeding/redness, lightheadedness/dizziness, change in breast size, SOB, chest pain, BLE pain. Passing gas, voiding and ambulating without issue. drain output moderate without clots. Time Spent with Patient Time attestation: Total time spent providing and/or coordinating discharge services: Exam Const: General: comfortable and no acute distress Eyes: Sclera: sclerae normal Neck: Neck: supple Resp: Effort & Inspection: normal respiratory effort Cardio: Rate: regular rate Rhythm: regular rhythm GI: GI Palp: Yes Soft to palpation, No Tenderness to palpation present (GI) and No Guarding due to palpation present (GI) Skin: Other: Chest surgical dressing c/d/i. Bilateral IMF incisions well approximated with dermabond in place, minimal distal superior flap ecchymosis, no erythema, minimal edema. Drains in place, maintaining suction, minimal bright red drainage without clots, drain sites without erythema/drainage. Extrem: General: no pedal edema DS: Data Data Completed and Pending Pending studies at discharge: Pending at discharge 03/18/23 08:42 Surgical [PTH] Routine 03/18/23 09:11 Surgical [PTH] Routine 03/18/23 09:22 Surgical [PTH] Routine 03/18/23 10:05 Surgical [PTH] Routine 03/18/23 10:09 Surgical [PTH] Routine 03/18/23 10:36 Surgical [PTH] Routine 03/18/23 10:43 Surgical [PTH] Routine 03/18/23 10:45 Surgical [PTH] Routine Labs on day of discharge: Labs from last 24 hours 03/19/23 03/18/23 03/18/23 07:36 20:14 16:55 POC Capillary Glucose 135 H 150 H 217 H 03/18/23 12:30 POC Capillary Glucose 216 H Discharge Plan Discharge Patient Disposition: Home, Self-Care Discharge Instructions: Arabella Mulligan MD [facility] [address] [place] [address] Post-operative Discharge Instructions Diet: May resume your normal carbohydrage-conscious diet. Activity: Avoid overhead movements with both arms for 2 weeks. Walk at least 3-4 times daily, but do not exert yourself. Ok to go up and down stairs. May use cold compress over the surgical site to help decrease pain and swelling. Dressing: Wear the compression bandage or compression bra at all times, including at night while sleeping. Patients with Drain: No showers or baths while drain is in place. May take sponge baths instead. Keep drains and tubing dry and away from water. Drain Care: Strip the drain tubing at least once a day and empty drains. Record the drain output and bring record to your follow up visit. This is important as the amount lets us know when to take out the drains. Follow up: Return to office in 1 week for post operative appointment. Please bring your drain log with you. Call the office with any questions or concerns in the meantime. If after hours, please call the lunchroom operator to be connected to the surgeon. If you have an emergency , call 911 or go to the nearest ER. Discharge Medications: New hydrocodone-acetaminophen 5-325 mg tablet 1 tablet PO Q6H PRN (Reason: pain) Qty: 10 0RF Rx Instructions: May take 1 tablet by mouth every 6 hours if pain Continued diphenhydramine HCl [Benadryl Allergy] 25 mg tablet 25 mg PO DAILY PRN (Reason: Allergy Symptoms) doxycycline monohydrate 50 mg tablet 50 mg PO DAILY Qty: 90 1RF Patient Comments: TAKES AT HS ezetimibe [Zetia] 10 mg tablet 10 mg PO DAILY Qty: 90 1RF o
[2023-03-19] MEDS: glipiZIDE 5 MG TABLET PO (08:56)
[2023-03-19] MEDS: EZETIMIBE 10 MG TABLET PO (08:56)
[2023-03-19] MEDS: lisinopriL 10 MG TABLET PO (08:56)
[2023-03-19 08:58] VITALS: BP 117/54; PULSE 84; RESP 16; TEMP 36.4; O2SAT 98
--- NOTE | 2023-03-19 08:59 | PM.PNGS ---
Progress Note: A&P Assessment and Plan (1) Invasive ductal carcinoma of right breast: Code(s): C50.911 - Malignant neoplasm of unspecified site of right female breast Status: Acute Assessment and Plan: 62 y/o female with right breast cancer admitted for observation overnight through same day surgery 03/18/23 for bilateral total mastectomy and right sentinel lymph node biopsy. Pt tolerated procedure well, improved overnight with no wound issues and decreasing drain output, pain well managed on PO medication, with plan to discharge home with follow up in office 1 week. Reviewed impression and healing expectations with pt. Discussed signs/symptoms of concern. Reviewed dressing/activity instructions in discharge. Plan 1) PO norco pain control at home 2) drain care q12 3) keep dressing in place at all times 4) dc home 5) follow up in office 1 week Subjective Subjective Date/Time Seen: 03/19/23 08:59 Interval history: Pt seen at bedside. No issues overnight, pain well managed with PO Rx. Denies fever/chills, bleeding/redness, lightheadedness/dizziness, change in breast size, SOB, chest pain, BLE pain, ABD pain. Voiding and ambulating without issue, passing gas no bowel movement yet. Would like to go home today. Exam Const: General: cooperative, healthy appearing and comfortable Orientation/consciousness: patient oriented x3 Eyes: Sclera: sclerae normal Neck: Neck: supple Chest: Other: Chest dressing c/d/i. Bilateral breast absent, IMF incisions well approximated with dermabond in place, no erythema, moderate distal superior flap ecchymosis bilaterally, moderate tenderness, minimal edema, no seroma/hematoma. Drains in place and patent, maintaining suction, minimal thin bright red drainage without clots in bulb, drain sites clean without erythema. Resp: Effort & Inspection: normal respiratory effort Cardio: Jugular venous distension: no JVD Rate: regular rate Rhythm: regular rhythm GI: GI Palp: No abdominal tenderness and Yes Soft to palpation Neuro: General: patient oriented x3 Speech: normal speech Objective Data Vital Signs Vital Signs: Vital Signs - 24 hr 03/18/23 11:20 03/18/23 11:35 03/18/23 11:45 Temperature 36.2 C L Pulse Rate 76 73 72 Respiratory Rate 12 18 12 Blood Pressure 122/84 137/65 144/69 H Pulse Oximetry 100 100 100 Oxygen Delivery Simple Face Mask Simple Face Mask Simple Face Mask Oxygen Flow Rate 8 8 8 03/18/23 12:00 03/18/23 12:15 03/18/23 12:30 Temperature Pulse Rate 83 85 70 Respiratory Rate 12 12 14 Blood Pressure 160/70 H 181/74 H 165/69 H Pulse Oximetry 93 100 100 Oxygen Delivery Room Air Nasal Cannula Nasal Cannula Oxygen Flow Rate 2 2 03/18/23 12:45 03/18/23 13:00 03/18/23 13:15 Temperature Pulse Rate 82 89 74 Respiratory Rate 12 12 12 Blood Pressure 164/58 H 158/65 H 142/68 H Pulse Oximetry 100 100 100 Oxygen Delivery Nasal Cannula Nasal Cannula Nasal Cannula Oxygen Flow Rate 2 2 2 03/18/23 13:30 03/18/23 13:45 03/18/23 13:55 Temperature Pulse Rate 97 68 80 Respiratory Rate 12 20 20 Blood Pressure 156/73 H 156/73 H 147/66 H Pulse Oximetry 100 100 100 Oxygen Delivery Nasal Cannula Nasal Cannula Nasal Cannula Oxygen Flow Rate 2 2 2 03/18/23 14:15 03/18/23 14:30 03/18/23 14:42 Temperature 35.9 C L 36.1 C L 36.1 C L Pulse Rate 76 80 75 Respiratory Rate 14 14 16 Blood Pressure 151/67 H 151/64 H 147/69 H Pulse Oximetry 100 100 100 Oxygen Delivery Oxygen Flow Rate 03/18/23 16:00 03/18/23 20:00 03/18/23 21:33 Temperature 36.5 C 37.1 C Pulse Rate 72 90 Respiratory Rate 16 14 Blood Pressure 127/54 L 139/48 L 147/65 H Pulse Oximetry 100 99 Oxygen Delivery Oxygen Flow Rate 03/18/23 20:00 03/19/23 00:00 03/19/23 04:00 Temperature 37.2 C 36.5 C Pulse Rate 97 80 Respiratory Rate 131 H 16 Blood Pressure 135/46 L Pulse Oximetry 97 Oxygen Delivery Room Air Oxygen Flow Rate
[2023-03-19 09:00] VITALS: PULSE 82; O2SAT 98
[2023-03-19] MEDS: metFORMIN HCL 500 MG TABLET 1000 MG PO (09:01)
[2023-03-19] MEDS: HYDROcodone/acetaminophen (*CRX) 5-325 MG TABLET 1 TAB PO (10:39)
--- NOTE | 2023-03-19 14:02 | PCCCNOTE ---
On 03/19/23, the student, Melissa Stone, provided care and completed [facility] documentation on this patient. I have reviewed the student's documentation and agree with the findings.
--- NOTE | 2023-03-19 14:17 | WPDANESPN ---
Anes - Prog Note Post-Op Date/Time: 03/19/23 14:17 Vital Signs: Last Vital Signs Temp 36.4 C 03/19/23 08:58 Pulse 82 03/19/23 09:00 Resp 16 03/19/23 08:58 BP 117/54 L 03/19/23 08:58 Pulse Ox 98 03/19/23 09:00 O2 Del Method Room Air 03/19/23 09:00 O2 Flow Rate 2 03/18/23 13:55 Pain Score (VAS): 0 I/O: Intake & Output 03/18/23 03/19/23 03/19/23 23:59 07:59 15:59 Intake Total 120 450 240 Output Total 40 90 17 Balance 80 360 223 03/18/23 03/18/23 03/19/23 16:55 20:14 07:36 POC Capillary Glucose 217 H 150 H 135 H Patient Feedback: Patient satisfied with anesthetic care.
== END 2023-03-19 10:50 | disposition home or self-care (01) ==
LOC: ANHSURGERY 11:40 → ANH3MEDSUR 14:03
PROVIDERS: PCP Nurse Practitioner; Visit Provider Surgery
PROC: (CPT 38525; principal; 2023-03-18 07:30)
DX: C50.411 Malignant neoplasm of upper-outer quadrant of right female breast (principal); E11.9 Type 2 diabetes mellitus without complications; I10 Essential (primary) hypertension; J45.909 Unspecified asthma, uncomplicated; Z82.49 Family history of ischemic heart disease and other diseases of the circulatory system; F12.90 Cannabis use, unspecified, uncomplicated; Z79.4 Long term (current) use of insulin; Z79.51 Long term (current) use of inhaled steroids; Z79.84 Long term (current) use of oral hypoglycemic drugs; E66.9 Obesity, unspecified; Z68.32 Body mass index [BMI] 32.0-32.9, adult; Z17.0 Estrogen receptor positive status [ER+]
CPT/HCPCS: 38525; 38792; 19303; 14301; 14302 ×2; 36415; 80048; 82948; 86850; 86900; 86901; 88305; 88307; 88331; A9270; J0330; J0690; J1100; J1170; J1200; J2250; J2371; J2405; J2704; J3010; J7120; Q9968

== ENCOUNTER 2023-04-29 12:26 | Outpatient (CLI) | payer MEDICARE, SELFPAY ==
[2023-04-29 12:37] LABS: Basophils Absolute Auto 0.1 K/mm3 (0.0-0.1); Basophils Percent Auto 1.1 % (0.2-1.2); Eosinophils Absolute Auto 0.2 K/mm3 (0-0.3); Hematocrit 44.5 % (37.0-47.0); Hemoglobin 14.1 g/dL (12.0-15.0); Immature Granulocyte Absolute 0.03 K/mm3 (0.00-0.031); Immature Granulocyte Percent A 0.4 % (0-0.5); Lymphocytes Absolute Auto 1.76 K/mm3 (0.9-3.2); Lymphocytes Percent Auto 22.2 % (18.3-44.2); Mean Corpuscular HGB Conc 31.7 g/dl (32-36); Mean Corpuscular Volume 88.5 fl (80-100); Mean Platelet Volume 11.1 fl (7.4-10.4); Monocytes Absolute Auto 0.6 K/mm3 (0.1-0.6); Monocytes Percent Auto 7.7 % (2.6-8.5); Neutrophils Absolute Auto 5.2 K/mm3 (1.3-6.7); Neutrophils Percent Auto 65.6 % (45.5-73.1); Platelet Count Result 311 k/mm3 (150-375); Red Blood Count 5.03 M/mm3 (4.2-5.4); Red Cell Distribution Width 13.7 % (11.5-14.5); White Blood Count 7.9 K/mm3 (4.5-10.0)
[2023-04-29 12:41] LABS: Blood Urea Nitrogen 24 mg/dL (8-26); Carbon Dioxide 27 mmol/L (22-30); Chloride 103 mmol/L (98-109); Estimated Glomerular Filt Rate 56; Glucose 132 mg/dL (70-105); Ionized Calcium (POC) 1.21 mmol/L (1.11-1.31); Potassium 5.2 mmol/L (3.5-4.9); Sodium 138 mmol/L (138-146)
[2023-04-29 17:16] LABS: Alanine Aminotransferase 24 U/L (6-35); Albumin Level 4.6 g/dL (3.5-5.1); Alkaline Phosphatase 81 U/L (38-126); Anion Gap 6 mmol/L (8-16); Aspartate Amino Transferase 28 U/L (14-36); Bilirubin,Total 0.5 mg/dL (0.2-1.3); Blood Urea Nitrogen 22 mg/dL (7-17); Calcium 9.5 mg/dL (8.4-10.2); Carbon Dioxide 27 mmol/L (22-30); Chloride 104 mmol/L (98-107); Estimated Glomerular Filt Rate 56; Glucose 122 mg/dL (65-110); Potassium 5.4 mmol/L (3.4-5.0); Sodium 137 mmol/L (137-145)
== END 2023-04-29 12:27 | disposition home or self-care (01) ==
LOC: ANHLAB 12:27
PROVIDERS: PCP Nurse Practitioner; Visit Provider Internal Medicine Hematology & Oncology
DX: C50.411 Malignant neoplasm of upper-outer quadrant of right female breast (principal); Z17.0 Estrogen receptor positive status [ER+]
CPT/HCPCS: 36415; 80047; 80053; 85025

== ENCOUNTER 2023-08-14 09:42 | Outpatient (CLI) | payer MEDICARE, SELFPAY ==
[2023-08-14 09:58] LABS: Basophils Absolute Auto 0.1 K/mm3 (0.0-0.1); Basophils Percent Auto 0.8 % (0.2-1.2); Eosinophils Absolute Auto 0.1 K/mm3 (0-0.3); Eosinophils Percent Auto 1.7 % (0-4.4); Hematocrit 42.5 % (37.0-47.0); Hemoglobin 13.6 g/dL (12.0-15.0); Immature Granulocyte Absolute 0.02 K/mm3 (0.00-0.031); Immature Granulocyte Percent A 0.3 % (0-0.5); Lymphocytes Absolute Auto 1.27 K/mm3 (0.9-3.2); Lymphocytes Percent Auto 21.2 % (18.3-44.2); Mean Corpuscular Hemoglobin 28.3 pg (26-34); Mean Corpuscular Volume 88.4 fl (80-100); Mean Platelet Volume 10.7 fl (7.4-10.4); Monocytes Absolute Auto 0.5 K/mm3 (0.1-0.6); Monocytes Percent Auto 7.7 % (2.6-8.5); Neutrophils Absolute Auto 4.1 K/mm3 (1.3-6.7); Neutrophils Percent Auto 68.3 % (45.5-73.1); Platelet Count Result 222 k/mm3 (150-375); Red Blood Count 4.81 M/mm3 (4.2-5.4); Red Cell Distribution Width 13.8 % (11.5-14.5)
[2023-08-14 10:00] LABS: Blood Urea Nitrogen 25 mg/dL (8-26); Carbon Dioxide 30 mmol/L (22-30); Chloride 104 mmol/L (98-109); Estimated Glomerular Filt Rate 50; Glucose 110 mg/dL (70-105); Ionized Calcium (POC) 1.17 mmol/L (1.11-1.31); Potassium 5.1 mmol/L (3.5-4.9); Sodium 140 mmol/L (138-146)
[2023-08-14 11:42] LABS: Alanine Aminotransferase 22 U/L (6-35); Alkaline Phosphatase 77 U/L (38-126); Anion Gap 4 mmol/L (4-12); Aspartate Amino Transferase 27 U/L (14-36); Bilirubin,Total 0.4 mg/dL (0.2-1.3); Blood Urea Nitrogen 25 mg/dL (7-17); Calcium 9.3 mg/dL (8.4-10.2); Carbon Dioxide 28 mmol/L (22-30); Chloride 107 mmol/L (98-107); Estimated Glomerular Filt Rate > 60; Glucose 111 mg/dL (65-110); Potassium 5.1 mmol/L (3.4-5.0); Sodium 139 mmol/L (137-145)
[2023-08-19 06:04] LABS: CA 15-3 15 U/mL (<32)
== END 2023-08-14 09:43 | disposition home or self-care (01) ==
LOC: ANHLAB 09:44
PROVIDERS: PCP Nurse Practitioner; Visit Provider Internal Medicine Hematology & Oncology
DX: C50.411 Malignant neoplasm of upper-outer quadrant of right female breast (principal); Z17.0 Estrogen receptor positive status [ER+]
CPT/HCPCS: 36415; 80047; 80053; 85025; 86300

== ENCOUNTER 2024-01-27 08:47 | Outpatient (CLI) | payer MEDICARE, SELFPAY ==
--- NOTE | ~2024-01-27 | DEXA_ITS ---
Bone Density Report Name: MARIA G CORNELIUS Age: 63 Sex: Female Ethnicity: White Date of : 1960 Indication: postmenopausal; screening for osteoporosis; height loss; prior fracture; cancer; asthma or emphysema; hysterectomy; Referring Provider: YUDY SPARKS Study: Bone densitometry was performed. Exam Date: January 27, 2024 Accession number: [id number] Bone Density: Region BMD T-score Z-score Classification AP Spine(L1-L4) 0.902 -1.3 0.3 Osteopenia Femoral Neck (Left) 0.604 -2.2 -0.8 Osteopenia Total Hip (Left) 0.836 -0.9 0.3 Normal Femoral Neck (Right) 0.679 -1.5 -0.1 Osteopenia Total Hip (Right) 0.802 -1.2 0.0 Osteopenia Total Hip Mean 0.819 -1.1 0.2 Osteopenia World Health Organization criteria for BMD impression classify patients as: Normal (T-score at or above -1.0), Osteopenia (T-score between -1.0 and -2.5), or Osteoporosis (T-score at or below -2.5). 10-year Fracture Risk: FRAX not reported because: Prior hip or vertebral fracture Clinical Information Provided by Patient: Have had a previous hip or vertebral fracture Has had a low trauma fracture Has used the following medications: Vitamin D, Calcium Has the following medical conditions: Asthma or Emphysema, Cancer, Hysterectomy Patient maximum height was 62.0 No regular weight bearing exercise Drinks caffeinated beverages Onset of menses at age 12 Number of children 1 Impression: The patient has low bone mass, based on the Left Femoral Neck T-score. The patient has risk factors, including: previous fracture. Discussion: INCREASED RISK OF FRACTURE DUE TO HISTORY OF FRACTURE. The patient's previous fracture puts the patient at high risk of a future fracture. In untreated patients, the risk of osteoporotic fracture increases approximately two-fold for each 1.0 SD decrease in T-score. Low bone density is not the only risk factor for fracture; also consider factors such as patient's age, frailty or poor health, risk of falling, risk of injury, previous osteoporotic fracture, family history of osteoporosis, cigarette smoking, low body weight, etc. Not everyone with a low trauma fracture has osteoporosis; osteomalacia and other metabolic bone disorders should also be considered. Patients who have osteoporosis should be evaluated for specific diseases and conditions (secondary causes) that may cause or contribute to bone loss and fracture risk. National Osteoporosis Foundation (NOF) recommends pharmacologic intervention for patients with a prior hip or vertebral fracture regardless of BMD T-score. The patient should follow a healthful lifestyle (good nutrition with adequate calcium and vitamin D, and appropriate weight-bearing exercise). Follow-Up: Consider a repeat BMD and Vertebral Fracture Assessment (VFA) exam in 2 years or s
== END 2024-01-27 08:48 | disposition home or self-care (01) ==
LOC: ANHIMG 08:53
PROVIDERS: PCP Nurse Practitioner; Visit Provider Internal Medicine Hematology & Oncology
DX: M85.89 Other specified disorders of bone density and structure, multiple sites (principal); Z13.820 Encounter for screening for osteoporosis
CPT/HCPCS: 77080

== ENCOUNTER 2024-07-18 09:49 | Emergency (ER) | payer MEDICARE, SELFPAY ==
[2024-07-18 10:06] VITALS: BP 152/77; PULSE 73; RESP 16; TEMP 37.3; O2SAT 99
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
== END 2024-07-18 11:45 | disposition home or self-care (01) ==
PROVIDERS: Emergency Provider Nurse Practitioner; PCP Internal Medicine
DX: M25.572 Pain in left ankle and joints of left foot (principal); M79.672 Pain in left foot; I10 Essential (primary) hypertension; K21.9 Gastro-esophageal reflux disease without esophagitis; J45.909 Unspecified asthma, uncomplicated; E11.9 Type 2 diabetes mellitus without complications; Z79.84 Long term (current) use of oral hypoglycemic drugs; E78.5 Hyperlipidemia, unspecified; E66.9 Obesity, unspecified; Z68.34 Body mass index [BMI] 34.0-34.9, adult; Z90.13 Acquired absence of bilateral breasts and nipples
CPT/HCPCS: 99211; G0463